=== PATIENT | male | born 1940 | race Caucasian/White ===

== ENCOUNTER 2018-01-03 06:33 | Day surgery (SDC) | payer OTHER, SELFPAY ==
[2017-12-18 16:34] VITALS: BMI 31.0
[2018-01-03] VITALS (7 sets, daily range): BP systolic 110–134; BP diastolic 59–76; PULSE 62–72; RESP 11–16; TEMP 36–36.2; O2SAT 94–98; BMI 31.6
[2018-01-03] MEDS: LACTATED RINGERS 1,000 ML 42 ML IV (07:41)
[2018-01-03] MEDS: CEFAZOLIN 2 GM/100 ML FROZ.PIGGY IV (08:00)
--- NOTE | 2018-01-03 08:00 | PM.PREOP ---
Pre-operative Note Interval Note Pre-op Check: Yes History & Physical Reviewed by Physician Changes: No
--- NOTE | 2018-01-03 08:23 | SUR.OPER ---
Supine on padded OR bed, head on pillow, arms secured on padded arm boards at <90 degrees abduction, legs uncrossed, safety belt at thigh, tape over blanket over lower legs.
[2018-01-03] MEDS: BUPIVACAINE 0.25% W/ EPI VIAL 50 ML INJ (08:29)
--- NOTE | 2018-01-03 08:56 | PM.OP.1 ---
Operative Date/Time/Diagnoses Date of procedure: 01/03/18 Time of procedure: 08:00 Pre-op diagnosis: Left carpal tunnel, left cubital tunnel Post-op diagnosis: same Procedure & Clinicians Procedure: Left carpal tunnel release, left cubital tunnel release Same procedure as scheduled: Yes Indications: Left carpal tunnel, left cubital tunnel Surgeon: Huey Perkins Development Manager: Bunny Madsen Anesthesia Type: General Operative Notes Findings: Compression of the median nerve at the carpal tunnel. Compression of the ulnar nerve at the cubital tunnel Closure Type: primary Estimated Blood Loss (mL): 0 Blood products transfused: none Tourniquet time (min): 26 Procedure in detail: On date of service, the patient was met in the holding area. His operative site was signed and witnessed by the OR staff. The surgery was once again discussed with the patient, and any remaining questions he had were answered fully. Patient was taken back to the operating theater and placed on the operating table in a supine position. Great care was taken to ensure that all bony prominences were carefully padded. A well-padded tourniquet was placed up along the upper extremity. A timeout was performed to verify patient's name, procedure, and operative site. The arm was then prepped and draped in the normal sterile fashion. A 15 blade was used to incise through skin In the center of the palm. Pickups and tenotomy scissors were used to dissect down until the palmar fascia was visualized. The palmar fascia was then sharply incised using a 15 blade. This gave us good visualization of the carpal ligament. A small opening was made into the carpal ligament, and a curved hemostat was placed into that opening. A 15 blade was then used to sharply incise the carpal ligament with the structures beneath being protected by the hemostat. Pickups and Metzenbaum scissors were used to complete the decompression both distally and proximally. This provided a complete decompression of the median nerve. The wound was then irrigated and closed with nylon. The hand was then cleaned, dried, and dressed. We next turned our attention to the cubital tunnel. A 15 blade was used to make an incision through skin and fascial tissue centered over the cubital tunnel. Pickups and Metzenbaum scissors were used to dissect down through the fascial tissue. The ulnar nerve was found proximal to the cubital tunnel. It was dissected free even further proximally. Next, the nerve was decompressed through the cubital tunnel. The roof of the tunnel was excised using the Metzenbaum scissors. This provided a complete decompression of the nerve through the cubital tunnel. The nerve was then decompressed even further distally through the FCU Fascial sheath. The branches coming off of the ulnar nerve were identified and protected. This provided us a large area of decompression of the ulnar nerve. The wound was then irrigated. The elbow was taken through range of motion and there was no sign of any instability to the nerve. The wound was then closed in a layered fashion. Patient was taken to the PACU in stable condition. Complications: none Condition: stable Disposition: PACU Plan for aftercare: No restrictions of range of motion. We will limit the amount of lifting for 2 weeks.
--- NOTE | 2018-01-03 09:15 | SUR.PHASEI ---
DRSG TO LEFT ELBOW ALSO OBSERVED TO BE C/D/I.
--- NOTE | 2018-01-03 09:29 | SUR.PHASEI ---
PT TRANSFERED TO [facility] IN STABLE CONDITION, VSS. PT SITTING UP AND DRINKING APPLE JUICE WITHOUT ANY DIFFICULTLY. PT DENIES ANY NAUSEA OR PAIN/DISCOMFORT. SURGICAL ARM WARM TO TOUCH, +PULSE, +SENSTATION, CAP REFILL WNL, AND +SENSTATION. DRSG'S OBSERVED TO BE C/D/I. BEDSIDE REPORT GIVEN TO DAVID TOMAS.
== END 2018-01-03 09:46 | disposition home or self-care (01) ==
PROVIDERS: Family Provider Family Medicine; PCP Family Medicine; Visit Provider Orthopaedic Surgery
PROC: (CPT 64721; principal; 2018-01-03 07:45)
PROC: (CPT 64718; 2018-01-03 07:45)
DX: G56.02 Carpal tunnel syndrome, left upper limb (principal); G56.22 Lesion of ulnar nerve, left upper limb; Z87.891 Personal history of nicotine dependence; Z95.0 Presence of cardiac pacemaker
CPT/HCPCS: 64718; 64721; J0690; J1100; J2405; J2704; J3010

== ENCOUNTER 2018-03-14 18:15 | Emergency (ER) | payer OTHER, SELFPAY ==
[2018-03-14 18:21] VITALS: BP 151/82; PULSE 75; RESP 15; TEMP 35.9; O2SAT 98; BMI 31.0
--- NOTE | 2018-03-14 18:58 | DI.RAD.S_ITS ---
PROCEDURE: XR CHEST 1V INDICATIONS: chest pain TECHNIQUE: One view of the chest was acquired. COMPARISON: [facility], , CHEST 2 VIEW, 12/19/2014, 18:22. FINDINGS: Surgical changes and devices: Dual chamber cardiac pacemaking device and leads in normal position Lungs and pleura: No pleural effusions or pneumothorax. Lungs are abnormal with a slight interstitial prominence and also reduced inspiratory volume with asymmetric mild to moderate elevation of the left hemidiaphragm,. Mediastinum: Mediastinal contours appear normal. Heart size is normal. Bones and chest wall: No suspicious bony lesions. Old left lateral rib trauma, versus thoracotomy. Overlying soft tissues appear unremarkable. IMPRESSION: No acute disease. Pacemaking device and dual chamber leads normal. Chronic elevation of the left hemidiaphragm associated either with old left lateral rib trauma or thoracotomy. Dictated by: Damon Sandoval M.D. on 03/14/2018 at 19:58 Approved by: Damon Sandoval M.D. on 03/14/2018 at 19:59
--- NOTE | 2018-03-14 19:13 | ED.GENADULT ---
HPI - General Adult General Chief complaint: Skin/Abscess/Foreign Body Stated complaint: CHEST VIBRATION, HAS PACEMAKER Time Seen by Provider: 03/14/18 19:13 Source: patient Mode of arrival: ambulatory Limitations: no limitations History of Present Illness HPI narrative: Patient is a 77-year-old male here for evaluation of a ?vibration? sensation in the right side of his chest. Patient states that it has been going on for approximately 1 week. He states that initially it was occasional now it seems to be more often. He states that it is a vibration sensation. Not associated with any chest pain or shortness of breath. States that it is not better worse with palpation or movement. He does have a pacemaker in place. Denies any trauma. Denies any skin changes. 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 Related Data Home Medications Medication Instructions Recorded Confirmed cholecalciferol (vitamin D3) 2,000 iu PO Q DAY #0 04/17/12 01/03/18 [Vitamin D3] aspirin 81 mg PO DAILY 12/18/17 01/03/18 Previous Rx's Medication Instructions Recorded hydrochlorothiazide 25 mg tablet 12.5 mg PO QDAY #45 tab 12/18/17 hydrocodone-acetaminophen [[place]] 2 tab PO Q4-6H PRN #30 tab 01/03/18 Allergies Allergy/AdvReac Type Severity Reaction Status Date / Time No Known Drug Allergies Allergy Verified 03/14/18 18:21 Review of Systems Constitutional Denies chills, Denies fatigue and Denies headache(s) ENT Ears, Nose, Mouth, and Throat: Denies vertigo and Denies headache(s) Cardiovascular Denies chest pain, Denies palpitations and Denies dyspnea Respiratory Denies cough and Denies dyspnea Gastrointestinal Gastrointestinal: Denies abdominal pain, Denies nausea and Denies vomiting Musculoskeletal Comments: Vibration sensation on the right side of his chest Integumentary/Breasts Denies lesions and Denies rash Neurologic Denies vertigo and Denies headache(s) Endocrine Denies fatigue and Denies palpitations Hematologic/Lymphatic Denies easy bleeding and Denies easy bruising REPLACED BY [facility] Medical History Acute bronchitis (Acute ~10/2017) Carpal tunnel syndrome of left wrist (Acute) Cough (Acute) Edema (Acute) Hearing deficit (Acute) High degree atrioventricular block (Acute) History of bradycardia (Acute) History of dizziness (Acute) Hyperlipidemia (Acute) Left shoulder pain (Acute) Lesion of ulnar nerve, left upper limb (Acute) Neck pain (Acute) Obese (Acute) Peyronie disease (Acute) Radicular pain in left arm (Acute) Sigmoid diverticulosis (Acute) Gout (Chronic 1994) Porphyria cutanea tarda (Chronic 1986) Surgical History History of colonoscopy (Acute) Hx of cholecystectomy (Acute ~1999) Status post cholecystectomy (Resolved 1999) Family History Brother No problems noted. Brother Cancer Father No problems noted. Mother Stroke Sister Stroke Social History household members: spouse Smoking Status: Former smoker alcohol intake: current Exam Initial Vital Signs Initial Vital Signs: Vital Signs Temperature 96.7 F L 03/14/18 18:21 Pulse Rate 75 03/14/18 18:21 Respiratory Rate 15 03/14/18 18:21 Blood Pressure 151/82 H 03/14/18 18:21 Pulse Oximetry 98 03/14/18 18:21 Const General: cooperative, healthy appearing, comfortable, well developed, well groomed and No acute distress Orientation: alert, awake and oriented x3 HENMT Head: normal to inspection and normocephalic Chest Chest: normal inspection of the chest, normal palpation of entire chest wall, No crepitus, No tenderness and pacemaker Breast inspection: normal inspection of the breasts Resp Effort & Inspection: normal respiratory effort Auscultation: clear to auscultation bilaterally Cardio Rhythm: regular rhythm Pulses: radial pulses present Skin Lesions: no lesions Rashes: no rashes Neuro General: alert, awake and oriented x3 Extrem General: normal to inspection and capillary refill normal Course Orders Ordered: ED Orders 03/14/18 18:58 XR chest 1V Stat EKG-12 Lead Stat Vital Signs - 8 hr 03/14/18 18:21 03/14/18 20:22 Temperature 96.7 F L Pulse Rate 75 80 Respiratory Rate 15 13 Blood Pressure 151/82 H 102/60 Pulse Oximetry 98 98 Medical Decision Making Imaging Data Chest x-ray: Radiologist's impression: PROCEDURE: XR CHEST 1V INDICATIONS: chest pain TECHNIQUE: One view of the chest was acquired. COMPARISON: [facility], CHEST 2 VIEW, 12/19/2014, 18:22. FINDINGS: Surgical changes and devices: Dual chamber cardiac pacemaking device and leads in normal position Lungs and pleura: No pleural effusions or pneumothorax. Lungs are abnormal with a slight interstitial prominence and also reduced inspiratory volume with asymmetric mild to moderate elevation of the left hemidiaphragm,. Mediastinum: Mediastinal contours appear normal. Heart size is normal. Bones and chest wall: No suspicious bony lesions. Old left lateral rib trauma, versus thoracotomy. Overlying soft tissues appear unremarkable. IMPRESSION: No acute disease. Pacemaking device and dual chamber leads normal. Chronic elevation of the left hemidiaphragm associated either with old left lateral rib trauma or thoracotomy. Dictated by: Damon Sandoval M.D. on 03/14/2018 at 19:58 Approved by: Damon Sandoval M.D. on 03/14/2018 at 19:59 ECG Data Attestation: I personally reviewed and interpreted this ECG as follows: Prior ECG tracings: not available for review Interpretation: Ventricular paced Rate is 72 QRS duration 177 milliseconds Normal QTC No ST T wave changes MDM Narrative Medical decision making narrative: Unsure as the exact etiology of the patient's symptoms. Does not appear to be pacemaker related. No skin changes. Is not having any chest pain. This could potentially be chest wall muscle spasms. Nothing noted on the chest x-ray. I discussed all this with the patient. He was given return precautions. He was informed of the lack of the exact etiology of his symptoms. Patient expressed understanding and agreement with plan. Discharge Plan Departure Patient Disposition: Home Clinical Impression: Presence of cardiac pacemaker, Paresthesia Discharge Date/Time: 03/14/18 20:22 Interventions: ED Discharge Assessment Last Done: 03/14/18 20:22 Activity Restrictions/Additional Instructions: No emergent condition was found during your limited workup today. 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 Return to the emergency department for any new symptoms, worsening symptoms, pain, problems breathing. Continue all of your medications as directed. Prescriptions: No Action cholecalciferol (vitamin D3) [Vitamin D3] 1,000 UNIT tablet 2,000 iu PO Q DAY Qty: 0 RF: 0 hydrochlorothiazide 25 mg tablet 12.5 mg PO QDAY Qty: 45 RF: 1 aspirin 81 mg Tablet,Delayed Release (Dr/Ec) 81 mg PO DAILY RF: 0 hydrocodone-acetaminophen [[place]] 5-325 mg tablet 2 tab PO Q4-6H PRN (Reason: pain) Qty: 30 RF: 0
[2018-03-14 20:22] VITALS: BP 102/60; PULSE 80; RESP 13; O2SAT 98
== END 2018-03-14 20:22 | disposition home or self-care (01) ==
PROVIDERS: Emergency Provider Emergency Medicine; Family Provider Family Medicine; PCP Family Medicine
DX: R20.2 Paresthesia of skin (principal); Z95.0 Presence of cardiac pacemaker
CPT/HCPCS: 71045; 93005; 99282; 99284

== ENCOUNTER 2018-04-25 13:26 | Day surgery (SDC) | payer OTHER, SELFPAY ==
[2018-04-25 14:10] VITALS: BP 129/75; PULSE 72; RESP 16; TEMP 36.4; O2SAT 97; BMI 31.0
[2018-04-25] MEDS: PROPARACAINE 0.5% OPHTH SOL 2 DROPS EYE-OP (14:14)
[2018-04-25] MEDS: CATARACT EYE COMPOUND (10 DROPS/SYRINGE) 3 DROPS EYE-OP (14:19)
--- NOTE | 2018-04-25 14:44 | PM.PREOP ---
Pre-operative Note Interval Note Pre-op Check: Yes History & Physical Reviewed by Physician Changes: No
--- NOTE | 2018-04-25 14:46 | PM.OP.1 ---
Procedure & Clinicians Procedure: cataract extraction with intraocular lens implant, left Same procedure as scheduled: Yes Indications: visually significant cataract, nuclear sclerosis Surgeon: Amari Perez Anesthesia Type: MAC +/- Operative Notes Procedure in detail: The patient was brought to the operating suite. The correct patient, surgical site and lens were confirmed. 0.5 % tetracaine drops were placed in the left eye. The patient was prepped and draped in the typical sterile manner. A lid speculum was placed in the eye. A paracentesis port was created with a side-port blade. 0.1 mL of 1% preservative free lidocaine was injected into the anterior chamber. Viscoelastic was injected into the anterior chamber. A 2.6mm keratome was used to create a clear corneal temporal incision. Cystotome and Utrata forceps were used to create a continuous curvilinear capsulorrhexis. Balanced salt solution was used to hydrodissect the nucleus. Phacoemulsification was used to remove the lens. The capsular bag was inflated with viscoelastic. A [place] ZBOO 21.5D lens was inserted into the capsule. Viscoelastic was removed and the wound hydrated. The wound was found to be leak free and the eye was assessed to be at normal physiologic pressure. 0.1mL Vigamox was injected into the anterior chamber. The lid speculum was removed and the patient left the operating room in excellent condition. Complications: none Condition: stable Disposition: same day surgery
[2018-04-25] MEDS: PHENYLEPHRINE/LIDOCAINE VIAL (OR) 0.2 ML EYE-OP (15:05)
[2018-04-25] MEDS: CHONDROIDTIN/SOD HYALURONATE 1.05 ML SYRINGE INTRAOCULA (15:05)
[2018-04-25] MEDS: MOXIFLOXACIN OPHTH DROPS 3 ML BOTTLE 2 DROPS INJ (15:05)
[2018-04-25] MEDS: TETRACAINE 0.5% OPHTH DROPS 15 ML 2 DROPS EYE-LEFT (15:06)
[2018-04-25] MEDS: BALANCED SALT IRRIG SOLN NO.2 500 ML, EPINEPHrine 1 MG IRR (15:06)
[2018-04-25] MEDS: LIDOCAINE 2% INJ SDV 1 ML INJ (15:07)
[2018-04-25 15:39] VITALS: BP 119/75; PULSE 64; RESP 12; TEMP 36.6; O2SAT 98
--- NOTE | 2018-05-09 17:00 | PM.OP.1 ---
Procedure & Clinicians Procedure: Cataract extraction with intraocular lens implant right eye Same procedure as scheduled: Yes Indications: nuclear sclerosis, visually significant cataract, right Surgeon: Amari Perez Click Yes if Unassisted: Yes Anesthesia Type: MAC +/- Operative Notes Procedure in detail: The patient was brought to the operating suite. The correct patient, surgical site and lens were confirmed. 0.5 % tetracaine drops were placed in the right eye. The patient was prepped and draped in the typical sterile manner. A lid speculum was placed in the eye. A paracentesis port was created with a side-port blade. 0.1 mL of 1% preservative free lidocaine with epinephrine was injected into the anterior chamber. Viscoelastic was injected into the anterior chamber. A 2.6mm keratome was used to create a clear corneal temporal incision. Cystotome and Utrata forceps were used to create a continuous curvilinear capsulorrhexis. Balanced salt solution was used to hydrodissect the nucleus. Phacoemulsification was used to remove the lens. The capsular bag was inflated with viscoelastic. A [place] ZBOO 21.0 D lens was inserted into the capsule. Viscoelastic was removed and the wound hydrated. The wound was found to be leak free and the eye was assessed to be at normal physiologic pressure. 0.1mL Vigamox was injected into the anterior chamber. The lid speculum was removed and the patient left the operating room in excellent condition. Complications: none Condition: stable Disposition: same day surgery
== END 2018-04-25 15:48 | disposition home or self-care (01) ==
LOC: OR 13:32
PROVIDERS: Family Provider Family Medicine; PCP Family Medicine; Visit Provider Ophthalmology
DX: H25.12 Age-related nuclear cataract, left eye (principal); Z95.0 Presence of cardiac pacemaker
CPT/HCPCS: J0171; J2250; J3010

== ENCOUNTER 2018-05-09 13:45 | Day surgery (SDC) | payer OTHER, SELFPAY ==
--- NOTE | 2018-05-09 14:45 | OP_ITS ---
correction, signed 05/09/18 Addendum Documented By: Amari Perez MD 06/06/18 1452 Addendum Signed By: <Electronically signed by Amari Perez MD> 1452 Procedure & Clinicians Procedure: Cataract extraction with intraocular lens implant right eye Same procedure as scheduled: Yes Indications: nuclear sclerosis, visually significant cataract, right Surgeon: Amari Perez Click Yes if Unassisted: Yes Anesthesia Type: MAC +/- Operative Notes Procedure in detail: The patient was brought to the operating suite. The correct patient, surgical site and lens were confirmed. 0.5 % tetracaine drops were placed in the right eye. The patient was prepped and draped in the typical sterile manner. A lid speculum was placed in the eye. A paracentesis port was created with a side-port blade. 0.1 mL of 1% preservative free lidocaine with epinephrine was injected into the anterior chamber. Viscoelastic was injected into the anterior chamber. A 2.6mm keratome was used to create a clear corneal temporal incision. Cystotome and Utrata forceps were used to create a continuous curvilinear capsulorrhexis. Balanced salt solution was used to hydrodissect the nucleus. Phacoemulsification was used to remove the lens. The capsular bag was inflated with viscoelastic. A [place] ZBOO 21.0 D lens was inserted into the capsule. Viscoelastic was removed and the wound hydrated. The wound was found to be leak free and the eye was assessed to be at normal physiologic pressure. 0.1mL Vigamox was injected into the anterior chamber. The lid speculum was removed and the patient left the operating room in excellent condition. Complications: none Condition: stable Disposition: same day surgery
[2018-05-09] MEDS: PROPARACAINE 0.5% OPHTH SOL 2 DROPS EYE-OP (15:14)
[2018-05-09 15:20] VITALS: BMI 31.0
[2018-05-09] MEDS: CATARACT EYE COMPOUND (10 DROPS/SYRINGE) 3 DROPS EYE-OP (15:20)
--- NOTE | 2018-05-09 15:23 | PM.PREOP ---
Pre-operative Note Interval Note Pre-op Check: Yes History & Physical Reviewed by Physician Changes: No
[2018-05-09 15:27] VITALS: BP 134/76; PULSE 69; RESP 16; TEMP 37.2; O2SAT 95
[2018-05-09] MEDS: CHONDROIDTIN/SOD HYALURONATE 1.05 ML SYRINGE INTRAOCULA (16:29)
[2018-05-09] MEDS: MOXIFLOXACIN OPHTH DROPS 3 ML BOTTLE 2 DROPS INJ (16:29)
[2018-05-09] MEDS: PHENYLEPHRINE/LIDOCAINE VIAL (OR) 0.2 ML EYE-OP (16:30)
[2018-05-09] MEDS: BALANCED SALT IRRIG SOLN NO.2 500 ML, EPINEPHrine 1 MG IRR (16:30)
[2018-05-09] MEDS: LIDOCAINE 2% INJ SDV 0.5 ML TOP (16:31)
[2018-05-09] MEDS: TETRACAINE 0.5% OPHTH DROPS 15 ML 2 DROPS EYE-RIGHT (16:31)
[2018-05-09 17:05] VITALS: BP 132/69; PULSE 63; RESP 16; TEMP 36.3; O2SAT 97
== END 2018-05-09 17:20 ==
LOC: OR 13:45
PROVIDERS: Family Provider Family Medicine; PCP Family Medicine; Visit Provider Ophthalmology
DX: H25.11 Age-related nuclear cataract, right eye (principal); Z95.0 Presence of cardiac pacemaker
CPT/HCPCS: J0171; J2250; J3010

== ENCOUNTER → 2018-06-26 12:52 | Outpatient (CLI) | payer OTHER, SELFPAY ==
[2018-06-26 13:07] LABS: Add Manual Diff / Slide Review NO; Basophils Absolute Auto 0 /uL (0-100); Basophils Percent Auto 0.7 % (0-2); Eosinophils Absolute Auto 100 /uL (0-450); Eosinophils Percent Auto 1.1 % (2-4); Hematocrit 44.2 % (41-53); Hemoglobin 14.7 g/dL (13.5-17.5); Lymphocytes Absolute Auto 2000 /uL (1100-4500); Lymphocytes Percent Auto 32.7 % (25-40); Mean Corpuscular HGB Conc 33.2 % (30-36); Mean Corpuscular Hemoglobin 29.9 PG (26-34); Mean Corpuscular Volume 90.3 fL (80-100); Monocytes Absolute Auto 400 /uL (0-900); Monocytes Percent Auto 6.5 % (3-14); Neutrophils Absolute Auto 3700 /uL (1500-7000); Platelet Count 195 X10^3/uL (150-400); Red Cell Distribution Width 13.9 % (11.6-14.8); White Blood Cell Count 6.2 X10^3/uL (4.5-11.0)
[2018-06-26 13:37] LABS: 585 Gram Check PASS; Amount Collected in g 585 GRAM; Prediastolic 67; Presystolic 116; Pulse 73; Site of phlebotomy LEFT AC; Zero Check Sebra Scale PASS
[2018-06-26 13:38] LABS: Dizziness NO; Postdiastolic BP 73; Postsystolic BP 118; Swelling NO; Therapeutic Phleb Comment NO COMMENT
[2018-06-26 14:14] LABS: HEMOLYSIS < 15 (0-50); Iron 100 ug/dL (49-181)
[2018-06-26 14:24] LABS: Percent Iron Saturation 29 % (20-50); Total Iron Binding Capacity 343 ug/dL (261-462); Transferrin 278 mg/dL (206-381)
[2018-06-26 16:31] LABS: Ferritin 67.4 ng/mL (17.9-464)
== END ==
PROVIDERS: Family Provider Family Medicine; PCP Family Medicine; Visit Provider Family Medicine
DX: E80.1 Porphyria cutanea tarda (principal); R89.9 Unspecified abnormal finding in specimens from other organs, systems and tissues
CPT/HCPCS: 36415; 82728; 83540; 83550; 85025; 99195

== ENCOUNTER → 2018-09-10 09:50 | Outpatient (CLI) | payer OTHER, SELFPAY ==
--- NOTE | 2018-09-10 09:52 | DI.RAD.S_ITS ---
PROCEDURE: XR KNEE LT 3V INDICATIONS: Persist L medial and under kneecap pain s/p fall remotely TECHNIQUE: 3 views of the knee were acquired. COMPARISON: [facility], , XR KNEE 2V LT, 04/16/2002, 15:41. FINDINGS: Bones: No fractures or dislocations. No suspicious bony lesions. There is joint space narrowing and osteophyte formation in the medial femorotibial compartment and patellofemoral compartment consist with osteoarthritis. Soft tissues: Small joint effusion. No suspicious soft tissue calcifications. IMPRESSION: 1. Mild to moderate osteoarthritis. 2. Small knee joint effusion. Dictated by: Zoe Cooper M.D. on 09/10/2018 at 10:42 Approved by: Zoe Cooper M.D. on 09/10/2018 at 10:56
== END ==
PROVIDERS: PCP Family Medicine; Visit Provider Nurse Practitioner
DX: M25.562 Pain in left knee (principal); T14.90XA Injury, unspecified, initial encounter; M17.12 Unilateral primary osteoarthritis, left knee; M25.462 Effusion, left knee
CPT/HCPCS: 73562

== ENCOUNTER → 2019-04-14 11:38 | Outpatient (CLI) | payer OTHER, SELFPAY ==
[2019-04-14 13:20] LABS: Hemoglobin 15.5 g/dL (13.5-17.5); Mean Corpuscular HGB Conc 33.8 % (30-36); Mean Corpuscular Hemoglobin 30.3 PG (26-34); Mean Corpuscular Volume 89.8 fL (80-100); Platelet Count 199 X10^3/uL (150-400); Red Blood Cell Count 5.12 X10^6/uL (4.5-5.9); Red Cell Distribution Width 14.3 % (11.6-14.8); White Blood Cell Count 6.9 X10^3/uL (4.5-11.0)
[2019-04-14 13:21] LABS: Ferritin 47.5 ng/mL (17.9-464)
[2019-04-14 13:47] LABS: Anisocytosis 1+; Neutrophils Absolute Manual 4830 /uL (3000-5900); Total Cells Counted 100
== END ==
PROVIDERS: PCP Family Medicine; Visit Provider Family Medicine
DX: R94.5 Abnormal results of liver function studies (principal); Z12.5 Encounter for screening for malignant neoplasm of prostate
CPT/HCPCS: 36415; 82728; 85025; G0103

== ENCOUNTER → 2019-04-17 12:02 | Outpatient (CLI) | payer OTHER, SELFPAY ==
[2019-04-17 12:39] LABS: 585 Gram Check PASS; Dizziness NO; Postdiastolic BP 72; Postsystolic BP 119; Prediastolic 82; Presystolic 128; Pulse 87; Site of phlebotomy RAC; Swelling NO; Therapeutic Phleb Comment NO COMMENT; Zero Check Sebra Scale PASS
== END ==
PROVIDERS: PCP Family Medicine; Visit Provider Family Medicine
DX: D75.1 Secondary polycythemia (principal)
CPT/HCPCS: 99195

== ENCOUNTER → 2019-06-05 12:08 | Outpatient (CLI) | payer OTHER, SELFPAY ==
[2019-06-05 12:23] LABS: Hematocrit 43.1 % (41-53); Hemoglobin 14.4 g/dL (13.5-17.5)
== END ==
PROVIDERS: PCP Family Medicine; Visit Provider Family Medicine
DX: E80.1 Porphyria cutanea tarda (principal)
CPT/HCPCS: 36415; 85014; 85018

== ENCOUNTER → 2019-08-19 08:00 | Outpatient (CLI) | payer MEDICARE, SELFPAY ==
--- NOTE | 2019-08-19 | DI.ECHO.S_ITS ---
[place] [facility]---------+ [facility] +---------+ : : [address] : : : : [id number] : : : : Phone: [phone]+ Echocardiogram Report + + :Name: MAYELA PALOMINO Study Date: 08/19/2019 Height: 69 in : :[facility] Weight: 218 lb : : Gender: Male BSA: 2.1 m2 : :: 1940 Age: 79 yrs BP: 134/82 mmHg: :Reason For Study: murmur : :Ordering Physician: Keith : :Sammie Arcos Performed By: Brenda Granado : :Referring: KEITH ARCOS : + + Interpretation Summary The left ventricle is normal in size. Left ventricular ejection fraction is estimated to be 55 +/- 5%. The right ventricle is mild to moderately dilated. Visually right ventricular function looks mildly reduced. There is a pacemaker lead in the right ventricle. There is moderate tricuspid regurgitation. The right ventricular systolic pressure is estimated to be at least 28 mmHg based on an estimated right atrial pressure of 3 mm Hg. Procedure: A two-dimensional transthoracic echocardiogram with color flow and Doppler was performed. There is no prior echocardiogram noted for this patient. The patient has a paced rhythm. Left Ventricle: Proximal septal thickening is noted. There is no echo evidence for significant left ventricular outflow tract obstruction. The left ventricle is normal in size. There is no thrombus. Left ventricular ejection fraction is estimated to be 55 +/- 5%. There is a mild dyssynchronous contraction pattern due to the paced rhythm. Septal motion is consistent with conduction abnormality. There is septal wall hypokinesis. There is apical inferior wall hypokinesis. Diastolic parameters suggest a relaxation abnormality of the left ventricle, consistent with probable normal filling pressures. Right Ventricle: There is a pacemaker lead in the right ventricle. The right ventricle is mild to moderately dilated. Visually right ventricular function looks mildly reduced. Atria: The left atrial size is normal. There is a catheter/pacemaker lead seen in the right atrium. The right atrium is mild to moderately dilated. There is no Doppler evidence for an interatrial shunt. Mitral Valve: There is mild mitral annular calcification. There is mild mitral regurgitation. Aortic Valve: The aortic valve is trileaflet. There is mild aortic valve sclerosis. There is discrete nodular thickening of the right coronary cusp. There is no aortic valve stenosis. No aortic regurgitation is present. Tricuspid Valve: The tricuspid valve is not well visualized, but is grossly normal. There is moderate tricuspid regurgitation. The right ventricular systolic pressure is estimated to be at least 28 mmHg based on an estimated right atrial pressure of 3 mm Hg. Pulmonic Valve: The pulmonic valve is not well visualized. There is trace pulmonic regurgitation. Great Vessels: The aortic root is normal size. The ascending aorta is normal in size. The IVC is of normal diameter and collapses greater than 50% with a sniff. This suggests a low right atrial pressure of 3 mm Hg. Pericardium/ Pleura There is no pericardial effusion. There is no pleural effusion. MMode/2D Measurements & Calculations LVIDd: 4.3 cm LVOT diam: 2.0 cm LVIDs: 2.8 cm Ao root diam: 3.1 cm FS: 36.1 % asc Aorta Diam: 3.0 cm EPSS: 0.58 cm Ao Arch Diam (Prox Trans): 3.3 cm IVSd: 0.96 cm LVPWd: 0.91 cm LV allen. diameter/BSA (cm/m^2): 2.0 LV sys. diameter/BSA (cm/m^2): 1.3 LA A2 area: 14.2 cm2 RA long axis: 4.5 cm LA A4 area: 16.3 cm2 RA area: 14.7 cm2 LA length (vol): 5.0 cm RA vol: 40.7 ml LA vol: 38.8 ml RA : 19.0 ml/m2 LA vol index: 18.1 ml/m2 IVC diam: 1.7 cm RVD1 (basal): 3.4 cm Doppler Measurements & Calculations Ao V2 max: 138.7 cm/sec LVOT Max Yoan: 77.7 cm/sec Ao V2 mean: 98.4 cm/sec LV V1 max P.4 mmHg Ao max P.7 mmHg LV V1 VTI: 15.4 cm Ao mean P.3 mmHg MAGALI(I,D): 1.6 cm2 Ao V2 VTI: 29.3 cm MAGALI(V,D): 1.7 cm2 sev ratio: 0.53 MAGALI indexed to BSA (cm^2/m^2): 0.76 MV E max yoan: 62.5 cm/sec TR max yoan: 250.2 cm/sec MV A max yoan: 77.1 cm/sec TR max P.0 mmHg MV E/A: 0.81 PA V2 max: 125.5 cm/sec Med Peak E' Yoan: 7.6 cm/sec PA V2 mean: 74.6 cm/sec E/E' med: 8.2 PA mean P.7 mmHg Lat Peak E' Yoan: 7.1 cm/sec PA Accel Time: 0.05 sec E/E' lat: 8.9 E/e' average: 8.6 MV dec time: 0.26 sec MV P1/2t: 76.4 msec MV P1/2t max yoan: 62.9 cm/sec SV(LVOT): 47.8 ml MVA(P1/2t): 2.9 cm2 Reading Physician:04:03 PM
== END ==
PROVIDERS: PCP Family Medicine; Referring Provider Internal Medicine Cardiovascular Disease; Visit Provider Internal Medicine Cardiovascular Disease
DX: I08.1 Rheumatic disorders of both mitral and tricuspid valves (principal); R01.1 Cardiac murmur, unspecified; Z95.0 Presence of cardiac pacemaker
CPT/HCPCS: 93306

== ENCOUNTER → 2019-12-31 09:47 | Outpatient (CLI) | payer MEDICARE, SELFPAY ==
[2019-12-31 10:04] LABS: Hemoglobin 14.4 g/dL (13.5-17.5)
[2019-12-31 12:34] LABS: 585 Gram Check PASS; Prediastolic 72; Presystolic 125; Pulse 78; Zero Check Sebra Scale PASS
[2019-12-31 12:35] LABS: Dizziness NO; Postdiastolic BP 73; Postsystolic BP 126; Site of phlebotomy LAC; Swelling NO; Therapeutic Phleb Comment NO COMMENT
== END ==
PROVIDERS: PCP Family Medicine; Referring Provider Family Medicine; Visit Provider Family Medicine
DX: D75.1 Secondary polycythemia (principal)
CPT/HCPCS: 36415; 85014; 85018; 99195

== ENCOUNTER 2020-02-18 11:21 | Emergency (ER) | payer MEDICARE, SELFPAY ==
[2020-02-18] VITALS (11 sets, daily range): BP systolic 128–179; BP diastolic 63–81; PULSE 67–85; RESP 12–24; TEMP 36.4; O2SAT 96–99; BMI 31.0
--- NOTE | 2020-02-18 11:29 | ED.DIZZY ---
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 He states that around 2:30 this morning and again at 5:00 a.m. this morning when he got up he felt very dizzy and when he walked he noted that he had to almost hold onto the bloom to keep fromfalling over. He states that this did not wake him from sleep but he just noticed it when he got up. He also felt nauseous. He has had 3 episodes of vomiting today. He states that he feels dizzy at rest but he notes that it is significantly worse when he moves around, when he is up and walking and/or even when he is moving his head. He says he has had vertigo previously for years but the only time he has ever experienced this is when he is working on a car and looking up at something and craning his head. He has never had vertigo that affect his balance or his ability to walk. 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 Other than feeling a little bit tired he does not feel like this affected him he did not have any chest pain or any other symptoms when he was doing this work but he is concerned that he might be dehydrated as he has not been drinking very much fluid yesterday he only had a cup of coffee in the morning. He says he does have chronic problems with his left sinus pointing to his nose saying that he often has to use a nasal spray at night because he does get congested chronically he has not noticed any change in this recently. His notes that his blood pressure is usually around the 120s when he checks it at home. Patient said that he did monitor his heart and check his blood pressure when he experienced the dizziness this morning and did not note that these were appreciably different than usual, his initial concern was for his pacemaker possibly not working correctly but he said his rate was around 70 or so. Which is normal for him. He denies any vision changes, headache, chest pain, back pain, palpitations, syncope, abdominal pain, shortness of breath, recent illness, fevers, chills, body aches, ear pain or fullness, sinus pressure or any other symptoms. MD complaint: dizziness Onset (ago): hour(s) (8) Timing: unsure Description: off-balance History of similar episodes: No History of trauma: No Severity: moderate Relieving factors: rest Exacerbating factors: movement and position Associated symptoms: nausea and vomiting Related Data Home Medications Medication Instructions Recorded Confirmed cholecalciferol (vitamin D3) 2,000 iu PO Q DAY #0 04/17/12 05/06/19 [Vitamin D3] Previous Rx's Medication Instructions Recorded meclizine 12.5 mg PO BID PRN #20 tab MDD 25mg 02/18/20 ondansetron HCl [Zofran] 4 mg PO Q6H #20 tab 02/18/20 Allergies Allergy/AdvReac Type Severity Reaction Status Date / Time No Known Drug Allergies Allergy Verified 02/18/20 11:28 Review of Systems <Althea Tay PA-C - Last Filed: 02/18/20 20:37> Review of Systems Narrative: GENERAL: Denies chills, fatigue, malaise, fever, sweats. HEENT: Denies sinus pain, ear pain, sore throat, difficulty swallowing, positive for dizziness. RESPIRATORY: Denies dyspnea, cough, wheezing, hemoptysis, sputum. CARDIOVASCULAR: Denies chest pain, palpitations, orthopnea, edema, GASTROINTESTINAL: Positive for nausea, vomiting, denies abdominal pain, diarrhea, constipation, melena. : Denies dysuria, frequency, incontinence, hematuria, urinary retention. MUSCULOSKELETAL: denies weakness, joint pain, or bony pain SKIN: Denies rash, skin lesions, or other NEUROLOGIC: Denies weakness, headache, numbness, change in speech, confusion, seizures, incoordination. PSYCHIATRIC: No concerning psychosocial issues. 12 point review of systems is negative except for those stated above ROS Unobtainable: All systems reviewed & are unremarkable except as noted in HPI and below Patient History <Althea Tay PA-C - Last Filed: 02/18/20 20:37> Medical History (Updated 02/18/20 @ 15:35 by Atlhea Tay PA-C) Acute bronchitis (Acute ~10/2017) Carpal tunnel syndrome of left wrist (Acute) Cough (Acute) Edema (Acute) Gout (Chronic 1994) Hearing deficit (Acute) High degree atrioventricular block (Acute) History of bradycardia (Acute) History of dizziness (Acute) Hyperlipidemia (Acute) Left shoulder pain (Acute) Lesion of ulnar nerve, left upper limb (Acute) Neck pain (Acute) Obese (Acute) Peyronie disease (Acute) Porphyria cutanea tarda (Chronic 1986) Radicular pain in left arm (Acute) Sigmoid diverticulosis (Acute) Surgical History History of colonoscopy (Acute) Hx of cholecystectomy (Acute ~1999) Status post cholecystectomy (Resolved 1999) Family History Brother No problems noted. Brother Cancer Father No problems noted. Mother Stroke Sister Stroke Social History household members: spouse Smoking Status: Former smoker alcohol intake: current Smoking Status: Former smoker alcohol intake frequency: holidays/special occasions only Substance Use Type: does not use Exam <Althea Tay PA-C - Last Filed: 02/18/20 20:37> Narrative Exam Narrative: GENERAL: 79 year old patient appears stated age. Well-nourished, well-developed patient, in mild distress. HEAD: Atraumatic. Normocephalic. EYES: Pupils equal round and reactive. Extraocular motions intact. No scleral icterus. No injection or drainage. There is slow subtle horizontal nystagmus with left lateral gaze. ENT: Nose without bleeding, purulent drainage. Throat without erythema, tonsillar hypertrophy or exudate. Airway patent. The right tympanic membrane is normal in appearance, pearly carr with cone of light visible, external auditory canals normal in appearance. The left EAC is normal in appearance, the left TM is without erythema, there is there is an effusion present, nonpurulent NECK: Trachea midline. Non tender CARDIOVASCULAR: Regular rate and rhythm without murmurs, gallops, or rubs. RESPIRATORY: Clear to auscultation. Breath sounds equal bilaterally. No wheezes, rales, or rhonchi. GASTROINTESTINAL: Abdomen soft, protruberant, non-tender, nondistended. EXTREMITIES: No edema or joint tenderness. BACK: Nontender without deformity or crepitance. No flank tenderness. NEURO: AOx3. Cranial nerves are intact with exception above under eyes, neuro exam is unremarkable with exception of nystagmus, strength is intact 5/5 bilaterally, coordination is intact with [id number] oybh-[id number]-[id number], negative arm drift. SKIN: No rash or erythema of visible areas Initial Vital Signs Initial Vital Signs: Vital Signs Temperature 97.5 F L 02/18/20 11:28 Pulse Rate 68 02/18/20 11:28 Respiratory Rate 14 02/18/20 11:28 Blood Pressure 179/81 H 02/18/20 11:28 Pulse Oximetry 99 02/18/20 11:28 <Victoria Gillespie DO - Last Filed: 02/19/20 08:02> Initial Vital Signs Initial Vital Signs: Vital Signs Temperature 97.5 F L 02/18/20 11:28 Pulse Rate 68 02/18/20 11:28 Respiratory Rate 14 02/18/20 11:28 Blood Pressure 179/81 H 02/18/20 11:28 Pulse Oximetry 99 02/18/20 11:28 GENERAL: Alert well-appearing elderly male and in no acute distress. HEENT: Head atraumatic,EOMI, pupils reactive, face symmetric, moist mucous membranes CARDIOVASCULAR: Regular rate and rhythm without murmurs, rubs or gallops. RESPIRATORY: Breath sounds equal bilaterally, no wheezes rales or rhonchi. ABDOMEN: Soft, nontender. Normoactive bowel sounds all 4 quadrants. No guarding or rebound. EXTREMITIES: Normal range of motion, no clubbing or edema. Neurovascularly intact NEUROLOGICAL: Alert and oriented x4.Normal gait and speech. Cranial nerves II through XII grossly intact. Good woailb-mu-iyzf, good cffc-lt-mxhy, strength equal bilaterally, no dysarthria or aphasia, sensation in tact to soft touch bilaterally, no visual changes, no facial droop SKIN: Warm, dry, no laceration, no petechiae, no rashes or lesions. Scores <Althea Tay PA-C - Last Filed: 02/18/20 20:37> ABCD2 Citation: Lancet. 2006Jul 07;369(1062):813-64. Validation and refinement of scores to predict very early stroke risk after transient ischaemic attack. Judy SC1, Saritha PM, Griselda MN, Martin MF, Carmelita JS, Shelton AL, Rufus S. <Victoria Gillespie DO - Last Filed: 02/19/20 08:02> NIH Stroke Scale Level of Conciousness: Alert, keenly responsive Ask month/age: Answers both questions correctly. Open/close eyes, close hand: Performs both tasks correctly Best gaze horizontal: Normal Visual sanchez: No visual loss Facial palsy: Normal symetrical movement Left arm drift: No drift for full 10 sec Right arm drift: No drift for full 10 sec Left leg drift: No drift for full 5 sec Right leg drift: No drift for full 5 sec Limb ataxia: Absent Sensory on face/arms/legs: Normal, no sensory loss Best language: No aphasia, normal Dysarthria: Normal Extinction or inattention: No abnormality Total NIH Stroke scale score: 0 Course <Althea Tay PA-C - Last Filed: 02/18/20 20:37> Course Course Narrative: I spoke with attending physician Dr. Gillespie about this patient, while it is possible that his symptoms are caused by a BPPV or viral illness, his symptoms are new for him acute in onset and given his age concerning for a posterior stroke, we elect to do a noncontrast head CT in addition to labs. 11:50 Patient was feeling significantly better after the medications he received, meclizine and Zofran although he still notes that he turns his head he feels more dizzy. He was able to walk around the unit multiple times although his gait is noted to be slower than usual and as if he is having to balance himself carefully (according to his ) compared to his normal. He states his symptoms are significantly better although while he is walking he says a little hesitant to move my head around too much because it might make me feel sick. 13:18 Discussd pt again with Attending, Anticipate discharging with zofran and Meclizine prescription, return precautions and close PCP follow up; Dr. Gillespie to examine the patient. 13:28 After examining the patient, Dr. Gillespie feels we should do a CTA head neck she is concerned that he still feels off balance with walking, and we should do more to evaluate for posterior stroke. He has a pacemaker and is not an excellent candidate for an MRI also may not be able to get him in quickly for this, we will pursue CTA. 13:45 Awaiting results of CTA; pt is resting comfortably; still has not vomited again since initial zofran and meclizine. 14:46 CTA is negative. 15:12 Patient is still feeling okay, no increased nausea with no recent vomiting discussed the plan for PCP follow-up ideally in the next 48 hours, discussed the importance of monitoring for any new or worsening symptoms and returning to the emergency department if these arise. Patient and are understanding and in agreement. Also discussed possibly seeing physical therapy if his symptoms are not improving, for possible help with BPPV/otolith repositioning. 15:30 Orders Ordered: Discontinued Medications Sodium Chloride (Normal Saline 0.9%) 1,000 mls @ 150 mls/hr IV CONT NASH Last Admin: 02/18/20 12:18 Dose: Not Given Documented by: JALENAPDaquan Sodium Chloride (Normal Saline 0.9%) 1,000 mls @ 500 mls/hr IV BOLUS ONE Stop: 02/18/20 13:50 Last Infusion: 02/18/20 13:19 Dose: 0 mls/hr Documented by: Admin: 02/18/20 12:00 Dose: 500 mls/hr Documented by: PETTY Meclizine HCl (Antivert) 25 mg PO NOW ONE Stop: 02/18/20 11:49 Last Admin: 02/18/20 12:00 Dose: 25 mg Documented by: PETTY Ondansetron HCl (Zofran) 4 mg IV NOW ONE Stop: 02/18/20 11:49 Last Admin: 02/18/20 12:00 Dose: 4 mg Documented by: PETTY Vital Signs Vital signs: Vital Signs - 8 hr 02/18/20 13:00 02/18/20 13:07 02/18/20 13:30 Pulse Rate 67 84 76 Respiratory Rate 13 17 Blood Pressure 128/73 169/74 H Pulse Oximetry 96 98 97 02/18/20 14:00 02/18/20 14:30 02/18/20 14:57 Pulse Rate 79 76 78 Respiratory Rate 24 Blood Pressure 132/63 Pulse Oximetry 98 97 97 02/18/20 15:00 02/18/20 15:30 Pulse Rate 68 85 Respiratory Rate Blood Pressure 144/67 H 142/68 H Pulse Oximetry 97 98 <Victoria Gillespie DO - Last Filed: 02/19/20 08:02> Orders Ordered: Discontinued Medications Sodium Chloride (Normal Saline 0.9%) 1,000 mls @ 150 mls/hr IV CONT NASH Last Admin: 02/18/20 12:18 Dose: Not Given Documented by: SCANAPO Sodium Chloride (Normal Saline 0.9%) 1,000 mls @ 500 mls/hr IV BOLUS ONE Stop: 02/18/20 13:50 Last Infusion: 02/18/20 13:19 Dose: 0 mls/hr Documented by: Admin: 02/18/20 12:00 Dose: 500 mls/hr Documented by: PETTY Meclizine HCl (Antivert) 25 mg PO NOW ONE Stop: 02/18/20 11:49 Last Admin: 02/18/20 12:00 Dose: 25 mg Documented by: PETTY Ondansetron HCl (Zofran) 4 mg IV NOW ONE Stop: 02/18/20 11:49 Last Admin: 02/18/20 12:00 Dose: 4 mg Documented by: PETTY Vital Signs Vital signs: Vital Signs - 8 hr 02/18/20 13:00 02/18/20 13:07 02/18/20 13:30 Pulse Rate 67 84 76 Respiratory Rate 13 17 Blood Pressure 128/73 169/74 H Pulse Oximetry 96 98 97 02/18/20 14:00 02/18/20 14:30 02/18/20 14:57 Pulse Rate 79 76 78 Respiratory Rate 24 Blood Pressure 132/63 Pulse Oximetry 98 97 97 02/18/20 15:00 02/18/20 15:30 Pulse Rate 68 85 Respiratory Rate Blood Pressure 144/67 H 142/68 H Pulse Oximetry 97 98 MDM - Dizziness <Althea Tya PA-C - Last Filed: 02/18/20 20:37> Differential Diagnosis Differential diagnosis: Likely benign paroxysmal positional vertigo, vertebral basilar insufficiency, cerebrovascular accident, transient cerebral ischemia and other (dehydration) Medical Records Attestation: I reviewed the patient's medical records. Lab Data Attestation: I reviewed the patient's lab results. Result diagrams: 02/18/20 11:35 02/18/20 11:35 Labs: Lab Results 02/18/20 02/18/20 02/18/20 Range/Units 11:35 11:35 11:35 WBC 5.0 (4.5-11.0) X10^3/uL RBC 4.64 (4.5-5.9) X10^6/uL Hgb 14.3 (13.5-17.5) g/dL Hct 42.3 (41-53) % MCV 91.1 (80-100) fL MCH 30.9 (26-34) PG MCHC 33.9 (30-36) % RDW 14.8 (11.6-14.8) % Plt Count 167 (150-400) X10^3/uL Neut % (Auto) 75.6 H (50-75) % Lymph % (Auto) 17.8 L (25-40) % Newberry % (Auto) 5.3 (3-14) % Eos % (Auto) 0.8 L (2-4) % Baso % (Auto) 0.5 (0-2) % Neut # (Auto) 3800 (5393-3058) /uL Lymph # (Auto) 900 L (7100-7843) /uL Newberry # (Auto) 300 (0-900) /uL Eos # (Auto) 0 (0-450) /uL Baso # (Auto) 0 (0-100) /uL Sodium 136 L (137-145) mmol/L Potassium 4.3 (3.4-5.1) mmol/L Chloride 103 (98-107) mmol/L Carbon Dioxide 28 (22-32) mmol/L BUN 15 (9-20) mg/dL Creatinine 0.68 (0.66-1.25) mg/dL Estimated GFR > 60.0 (>60) mL/min BUN/Creatinine Ratio 22.1 H (6-22) Glucose 122 H (80-110) mg/dL Calcium 9.1 (8.4-10.2) mg/dL Total Bilirubin 1.2 (0.2-1.3) mg/dL AST 29 (17-59) IU/L ALT 17 (<50) IU/L Alkaline Phosphatase 65 (38-126) U/L Total Creatine Kinase 83 (55-170) U/L CK-MB (CK-2) TNP CK-MB (CK-2) Rel Index TNP Troponin I < 0.012 (0.01-0.034) ng/mL Total Protein 7.2 (6.3-8.2) g/dL Albumin 4.2 (3.5-5.0) g/dL Globulin 3.0 (1.7-4.1) g/dL Albumin/Globulin Ratio 1.4 (1.0-2.8) Lipase 61 (23-300) U/L Urine Dip Bedside Urine Glucose Negative Bedside Urine Bilirubin - Negative Bedside Urine Ketone ++ 40 Urine Specific [place] 1.020 Bedside Urine Occult Blood - Negative Bedside Urine pH 6.0 Bedside Urine Protein - Negative Bedside Urine Urobilinogen - Negative Bedside Urine Nitrite - Negative Bedside Urine Leukocytes - Negative Esterase Imaging Data Chest x-ray: Attestation: I personally reviewed and interpreted this imaging study as follows: Radiologist's Impression: [address] [address] XRay Report Signed Patient: Ray White LMR#: [id number] : 1940Acct:[id number] Age/Sex: 79 / MDate of Service: 02/18/20 Loc: ED Accession Number: [id number] Procedure: XR chest 1V Ordering Provider: Althea Tay P.A-C PROCEDURE: XR CHEST 1V INDICATIONS: dizziness TECHNIQUE: One view of the chest was acquired. COMPARISON: [facility], , XR CHEST 1V, 03/14/2018, 19:38. FINDINGS: Surgical changes and devices: Left chest wall pacemaker leads are seen in the region of right atrium and right ventricle. Lungs and pleura: Mild pulmonary vascular congestion is seen. No focal infiltrate. No pleural effusions or pneumothorax. Mediastinum: Mediastinal contours appear normal. Heart size is enlarged. Bones and chest wall: No suspicious bony lesions. Overlying soft tissues appear unremarkable. IMPRESSION: Cardiomegaly and mild congestion. No focal infiltrate, pleural effusion or pneumothorax. Dictated by: Lewis Mauricio M.D. on 02/18/2020 at 12:08 Approved by: Lewis Mauricio M.D. on 02/18/2020 at 12:17 CT scan - head: Attestation: I personally reviewed and interpreted this imaging study as follows: Radiologist's Impression: [address] [address] [address] Scan Report Signed Patient: Ray White LMR#: [id number] : 1940Acct:[id number] Age/Sex: 79 / MDate of Service: 02/18/20 Loc: ED Accession Number: [id number] Procedure: CT head/brain wo con Ordering Provider: Althea Tay P.A-C PROCEDURE: CT HEAD/BRAIN WO CON INDICATIONS: acute dizziness, concern for posterior stroke TECHNIQUE: Noncontrast 4.5 mm thick angled axial sections acquired from the foramen magnum to the vertex, with coronal and sagittal reformats. For radiation dose reduction, the following was used: automated exposure control, adjustment of mA and/or kV according to patient size. COMPARISON: [facility], MR, BRAIN (IAC) W AND WO CONTRAST, 10/18/2009, 9:14. FINDINGS: Image quality: Excellent. CSF spaces: Basal cisterns are patent. No extra-axial fluid collections. The ventricles are symmetric in size and shape. Brain: No intracranial bleeds or masses. There is cerebral volume loss for age, with resultant ventricular and sulcal prominence. There are periventricular and deep white matter chronic small vessel ischemic changes. There is intracranial internal carotid artery atherosclerosis. Skull and face: Calvarium and visualized facial bones appear intact, without suspicious lesions. Sinuses: Visualized sinuses and mastoids are clear. IMPRESSION: No findings of acute infarction are detected by this noncontrast head CT. No acute intracranial hemorrhage is seen. Note is made of age-appropriate brain parenchymal volume loss and chronic small vessel ischemic changes. If there is strong clinical suspicion for an acute stroke, please consider an MRI for further evaluation, as it is more sensitive (assuming that there is no contraindication to MRI). Dictated by: Sammy Dow M.D. on 02/18/2020 at 11:23 Approved by: Sammy Dow M.D. on 02/18/2020 at 11:24 CTA - brain/neck: Attestation: I personally reviewed and interpreted this imaging study as follows: Radiologist's Impression: [address] [address] [address] Scan Report Signed Patient: Ray White LMR#: [id number] : 1940Acct:[id number] Age/Sex: 79 / MDate of Service: 02/18/20 Loc: ED Accession Number: [id number] Procedure: CT angio head and neck Ordering Provider: Atlhea Tay P.A-C PROCEDURE: CT ANGIO HEAD AND NECK INDICATIONS: concern for posterior CVA TECHNIQUE: Pre-contrast 4.5 mm thick sections acquired from the foramen magnum to the vertex. After the administration of intravenous contrast, 1 mm thick sections acquired from the aortic arch through the Tow of Lam. Post-contrast 4.5 mm thick sections then re-acquired from the foramen magnum to the vertex. 3-dimensional rdykgdo-tjoijeabt-golxftqgiu (MIP) and/or volume rendering reformats were acquired of the central intracranial vasculature and neck separately. COMPARISON: [facility], CT, CT HEAD/BRAIN WO CON, 02/18/2020, 11:55. FINDINGS: Image quality: Excellent. BRAIN: CSF spaces: Ventricles are normal in size and shape. Basal cisterns are patent. No extra-axial fluid collections. Brain: No midline shift. No intracranial bleeds or masses. Carr-white matter interface appears intact. Skull and face: Calvarium and facial bones appear intact, without suspicious lesions. Orbits appear normal. Sinuses: Sinuses and mastoids are clear. HEAD CT ANGIOGRAPHY: Anterior circulation: Intracranial internal carotid arteries are patent. Atherosclerotic calcifications of the intracranial internal carotid arteries without high-grade stenosis identified. The flow within the middle cerebral arteries is normal and symmetric. The anterior communicating artery is seen. No aneurysms are seen. Posterior circulation: There is a right dominant vertebral artery system. Visualized portions of the vertebral arteries are well opacified and join to form a normal appearing basilar artery. No high-grade stenosis identified. No aneurysms are seen. NECK CT ANGIOGRAPHY: Carotid system: The great vessels demonstrate a conventional anatomy as they arise from the aortic arch. There are atherosclerotic calcifications involving the aortic arch, the visualized origins of the common carotid arteries appear patent. The common carotid arteries demonstrate normal caliber and courses. The bifurcation regions have scattered atherosclerotic calcifications without hemodynamically significant stenoses. The internal carotid arteries demonstrate normal calibers and courses. Posterior circulation: The origins of the vertebral arteries both appear widely patent. There is a right dominant vertebral artery system. The more superior extracranial portions of both vertebral arteries also demonstrate normal courses and calibers. They join to form a normal appearing basilar artery. Soft tissues: Visualized neck soft tissues demonstrate no suspicious abnormalities. Bones: No suspicious bony lesions. Visualized cervical spine appears normally aligned. Multilevel cervical spondylitic changes. IMPRESSION: 1. Scattered atherosclerosis of the neck and intracranial arterial vasculature without hemodynamically significant stenosis identified. No evidence for occlusion, dissection, or aneurysm formation. Incidental note of right dominant vertebral artery system. 2. If there is persistent clinical concern for acute cerebral infarction or ischemia, further evaluation with MRI can be considered. Any quantitative measurements of stenosis were performed using NASCET criteria. Dictated by: Nakul Vaca M.D. on 02/18/2020 at 15:03 Approved by: Nakul Vaca M.D. on 02/18/2020 at 15:13 ECG Data Attestation: I personally reviewed and interpreted this ECG as follows: Prior ECG tracings: available for review (no change from 2018 study) Interpretation: Atrial sensed ventricular paced rhythm, ventricular rate of 68 p.r. interval 202 QRS 1 7 to QT 482 QTC 512 P axis 34 R axis -72 T axis 70 MDM Narrative Medical decision making narrative: This is an uncomfortable appearing 79-year-old the history of hyperlipidemia cardiac pacemaker porphyria cutanea tarda who presents to the emergency department complaining of acute onset of dizziness with nausea and vomiting that began early this morning and has continued since that time. This was affecting his ability to walk, and he had never had similar symptoms. He had recently been in his normal state of health although notably had been doing work outside and not drinking a lot of fluid for the past few days in the sun. Given the patient's age, presentation there was concern for posterior CVA, CT noncontrast was unremarkable, CTA also returned, without evidence of occlusion, dissection or aneurysm. Labs returned unremarkable including a troponin, EKG is unchanged from 2018 study, exam notable for subtle lateral gaze nystagmus on the left, effusion of the left TM neuro exam otherwise unremarkable. Patient's symptoms did improve with Zofran and meclizine however not completely. Patient was discharged home in the care of his , with near complete relief of symptoms, advised to follow-up with his primary care provider, advised to monitor for any new or concerning symptoms and return for re-evaluation if they develop. All questions answered. <Victoria Gillespie, DO - Last Filed: 02/19/20 08:02> Lab Data Labs: Lab Results 02/18/20 02/18/20 02/18/20 Range/Units 11:35 11:35 11:35 WBC 5.0 (4.5-11.0) X10^3/uL RBC 4.64 (4.5-5.9) X10^6/uL Hgb 14.3 (13.5-17.5) g/dL Hct 42.3 (41-53) % MCV 91.1 (80-100) fL MCH 30.9 (26-34) PG MCHC 33.9 (30-36) % RDW 14.8 (11.6-14.8) % Plt Count 167 (150-400) X10^3/uL Neut % (Auto) 75.6 H (50-75) % Lymph % (Auto) 17.8 L (25-40) % Newberry % (Auto) 5.3 (3-14) % Eos % (Auto) 0.8 L (2-4) % Baso % (Auto) 0.5 (0-2) % Neut # (Auto) 3800 (8807-9718) /uL Lymph # (Auto) 900 L (3074-4337) /uL Newberry # (Auto) 300 (0-900) /uL Eos # (Auto) 0 (0-450) /uL Baso # (Auto) 0 (0-100) /uL Sodium 136 L (137-145) mmol/L Potassium 4.3 (3.4-5.1) mmol/L Chloride 103 (98-107) mmol/L Carbon Dioxide 28 (22-32) mmol/L BUN 15 (9-20) mg/dL Creatinine 0.68 (0.66-1.25) mg/dL Estimated GFR > 60.0 (>60) mL/min BUN/Creatinine Ratio 22.1 H (6-22) Glucose 122 H (80-110) mg/dL Calcium 9.1 (8.4-10.2) mg/dL Total Bilirubin 1.2 (0.2-1.3) mg/dL AST 29 (17-59) IU/L ALT 17 (<50) IU/L Alkaline Phosphatase 65 (38-126) U/L Total Creatine Kinase 83 (55-170) U/L CK-MB (CK-2) TNP CK-MB (CK-2) Rel Index TNP Troponin I < 0.012 (0.01-0.034) ng/mL Total Protein 7.2 (6.3-8.2) g/dL Albumin 4.2 (3.5-5.0) g/dL Globulin 3.0 (1.7-4.1) g/dL Albumin/Globulin Ratio 1.4 (1.0-2.8) Lipase 61 (23-300) U/L Urine Dip Bedside Urine Glucose Negative Bedside Urine Bilirubin - Negative Bedside Urine Ketone ++ 40 Urine Specific [place] 1.020 Bedside Urine Occult Blood - Negative Bedside Urine pH 6.0 Bedside Urine Protein - Negative Bedside Urine Urobilinogen - Negative Bedside Urine Nitrite - Negative Bedside Urine Leukocytes - Negative Esterase MDM Narrative Medical decision making narrative: Have seen and evaluated patient myself. He is feeling better after meclizine and Zofran he is doing okay with ambulation however he still feels like his coordination and gait is off. But he is able to walk. Due to his pace maker unable to MRI will get CTA, to help rule out posterior stroke. CTA unremarkable patient's symptoms continue to improve but he is not back to baseline. Symptoms are definitely worse with movement and position consistent with a paroxysmal positional vertigo. Discharge Plan Departure Patient Disposition: Home Clinical Impression: Vertigo Nausea & vomiting Qualifiers: Vomiting type: unspecified Vomiting Intractability: non-intractable Qualified Code(s): R11.2 - Nausea with vomiting, unspecified Discharge Date/Time: 02/18/20 15:42 Instructions: DI for Vertigo, Nausea and Vomiting-Adult, DI for Dizziness-Nonvertigo Activity Restrictions/Additional Instructions: Thank you for allowing us to be part of your care in the emergency department today. Your imaging exams and physical exam and labs all came out okay today, at this time it appears that you are suffering from vertigo, this could be what is called benign paroxysmal positional vertigo which can come and go, or it could be related to the fluid in your left ear. If you continue to have symptoms of vertigo that do not resolve over the next few days you should talk to her primary care provider about possibly seeing a physical therapist, sometimes there are maneuvers you can do to reposition the otoliths or crystals inside your ears which help control your balance. I do want you to see your primary care provider ideally in the next 48-72 hours for a recheck. While things we did look good today it is very important that if you have any new or any worsening symptoms that you do not hesitate to be re-evaluated, seek medical care or return to the emergency department. I have prescribed 2 medications 1 helps with nausea and vomiting (Zofran/ ondansetron) and 1 helps with vertigo and dizziness (meclizine). These medications were E prescribed to the [facility] in [place] as you requested. There is no evidence of an emergent or life threatening illness at this time, but follow up with your doctor in 1-2 days is recommended nonetheless to continue to rule out serious underlying causes of your symptoms. Please call the office for an appointment. Please return to the Emergency Department for any worsening or persistent symptoms. Please take medications as directed. Prescriptions: New ondansetron HCl [Zofran] 4 mg tablet 4 mg PO Q6H Qty: 20 RF: 0 meclizine 12.5 mg tablet 12.5 mg PO BID MDD 25mg PRN (Reason: dizziness) Qty: 20 RF: 0 No Action cholecalciferol (vitamin D3) [Vitamin D3] 1,000 UNIT tablet 2,000 iu PO Q DAY Qty: 0 RF: 0 Referrals: Edward Bowers MD [Primary Care Provider] - <Victoria Gillespie DO - Last Filed: 02/19/20 08:02> Cosign ED Attending Yukiature Attestation: I was immediately available in the department for consultation. Documentation has been reviewed. I agree with assessment and plan.
[2020-02-18 11:45] LABS: Add Manual Diff / Slide Review NO; Basophils Absolute Auto 0 /uL (0-100); Basophils Percent Auto 0.5 % (0-2); Eosinophils Absolute Auto 0 /uL (0-450); Eosinophils Percent Auto 0.8 % (2-4); Hematocrit 42.3 % (41-53); Hemoglobin 14.3 g/dL (13.5-17.5); Lymphocytes Absolute Auto 900 /uL (1100-4500); Lymphocytes Percent Auto 17.8 % (25-40); Mean Corpuscular HGB Conc 33.9 % (30-36); Mean Corpuscular Hemoglobin 30.9 PG (26-34); Mean Corpuscular Volume 91.1 fL (80-100); Monocytes Absolute Auto 300 /uL (0-900); Monocytes Percent Auto 5.3 % (3-14); Neutrophils Absolute Auto 3800 /uL (1500-7000); Neutrophils Percent Auto 75.6 % (50-75); Platelet Count 167 X10^3/uL (150-400); Red Blood Cell Count 4.64 X10^6/uL (4.5-5.9); Red Cell Distribution Width 14.8 % (11.6-14.8)
--- NOTE | 2020-02-18 11:46 | PC.NURSE ---
Patient woke up around 0230 to go to restroom, felt dizziness at that time. Ongoing with two episodes of vomiting. Patient reports working hard in the yard over last couple days with decrease water intake. patient had episode of emesis while sitting up at edge of bed for exam.
--- NOTE | 2020-02-18 11:49 | DI.CT.S_ITS ---
PROCEDURE: CT HEAD/BRAIN WO CON INDICATIONS: acute dizziness, concern for posterior stroke TECHNIQUE: Noncontrast 4.5 mm thick angled axial sections acquired from the foramen magnum to the vertex, with coronal and sagittal reformats. For radiation dose reduction, the following was used: automated exposure control, adjustment of mA and/or kV according to patient size. COMPARISON: [facility], MR, BRAIN (IAC) W AND WO CONTRAST, 10/18/2009, 9:14. FINDINGS: Image quality: Excellent. CSF spaces: Basal cisterns are patent. No extra-axial fluid collections. The ventricles are symmetric in size and shape. Brain: No intracranial bleeds or masses. There is cerebral volume loss for age, with resultant ventricular and sulcal prominence. There are periventricular and deep white matter chronic small vessel ischemic changes. There is intracranial internal carotid artery atherosclerosis. Skull and face: Calvarium and visualized facial bones appear intact, without suspicious lesions. Sinuses: Visualized sinuses and mastoids are clear. IMPRESSION: No findings of acute infarction are detected by this noncontrast head CT. No acute intracranial hemorrhage is seen. Note is made of age-appropriate brain parenchymal volume loss and chronic small vessel ischemic changes. If there is strong clinical suspicion for an acute stroke, please consider an MRI for further evaluation, as it is more sensitive (assuming that there is no contraindication to MRI). Dictated by: Sammy Dow M.D. on 02/18/2020 at 11:23 Approved by: Sammy Dow M.D. on 02/18/2020 at 11:24
[2020-02-18 11:58] LABS: Alanine Aminotransferase 17 IU/L (<50); Albumin 4.2 g/dL (3.5-5.0); Albumin Globulin Ratio 1.4 (1.0-2.8); Alkaline Phosphatase 65 U/L (38-126); Aspartate Aminotransferase 29 IU/L (17-59); BUN Creatinine Ratio 22.1 (6-22); Bilirubin Total 1.2 mg/dL (0.2-1.3); Blood Urea Nitrogen 15 mg/dL (9-20); Calcium 9.1 mg/dL (8.4-10.2); Carbon Dioxide 28 mmol/L (22-32); Chloride 103 mmol/L (98-107); Creatine Kinase 83 U/L (55-170); Estimated Glomerular Filt Rate > 60.0 mL/min (>60); Glucose 122 mg/dL (80-110); HEMOLYSIS < 15 (0-50); Potassium 4.3 mmol/L (3.4-5.1); Sodium 136 mmol/L (137-145); Total Protein 7.2 g/dL (6.3-8.2)
[2020-02-18] MEDS: MECLIZINE HCL 12.5 MG TABLET 25 MG PO (12:00)
[2020-02-18] MEDS: ONDANSETRON 4 MG/2 ML INJ IV (12:00)
[2020-02-18] MEDS: SODIUM CHLORIDE 0.9% 1,000 ML 500 ML IV (12:00)
[2020-02-18 12:09] LABS: Troponin I < 0.012 ng/mL (0.01-0.034)
[2020-02-18 12:14] LABS: Lipase 61 U/L (23-300)
--- NOTE | 2020-02-18 13:40 | PC.NURSE ---
Patient ambulated around the ER. stated his gait is slower than normal and unsteady. Patient reported some dizziness but not as bad as this morning.
--- NOTE | 2020-02-18 13:52 | DI.CT.S_ITS ---
PROCEDURE: CT ANGIO HEAD AND NECK INDICATIONS: concern for posterior CVA TECHNIQUE: Pre-contrast 4.5 mm thick sections acquired from the foramen magnum to the vertex. After the administration of intravenous contrast, 1 mm thick sections acquired from the aortic arch through the [place] of Lma. Post-contrast 4.5 mm thick sections then re-acquired from the foramen magnum to the vertex. 3-dimensional utvworp-zzfbrfoup-levephtity (MIP) and/or volume rendering reformats were acquired of the central intracranial vasculature and neck separately. COMPARISON: [facility], CT, CT HEAD/BRAIN WO CON, 02/18/2020, 11:55. FINDINGS: Image quality: Excellent. BRAIN: CSF spaces: Ventricles are normal in size and shape. Basal cisterns are patent. No extra-axial fluid collections. Brain: No midline shift. No intracranial bleeds or masses. Carr-white matter interface appears intact. Skull and face: Calvarium and facial bones appear intact, without suspicious lesions. Orbits appear normal. Sinuses: Sinuses and mastoids are clear. HEAD CT ANGIOGRAPHY: Anterior circulation: Intracranial internal carotid arteries are patent. Atherosclerotic calcifications of the intracranial internal carotid arteries without high-grade stenosis identified. The flow within the middle cerebral arteries is normal and symmetric. The anterior communicating artery is seen. No aneurysms are seen. Posterior circulation: There is a right dominant vertebral artery system. Visualized portions of the vertebral arteries are well opacified and join to form a normal appearing basilar artery. No high-grade stenosis identified. No aneurysms are seen. NECK CT ANGIOGRAPHY: Carotid system: The great vessels demonstrate a conventional anatomy as they arise from the aortic arch. There are atherosclerotic calcifications involving the aortic arch, the visualized origins of the common carotid arteries appear patent. The common carotid arteries demonstrate normal caliber and courses. The bifurcation regions have scattered atherosclerotic calcifications without hemodynamically significant stenoses. The internal carotid arteries demonstrate normal calibers and courses. Posterior circulation: The origins of the vertebral arteries both appear widely patent. There is a right dominant vertebral artery system. The more superior extracranial portions of both vertebral arteries also demonstrate normal courses and calibers. They join to form a normal appearing basilar artery. Soft tissues: Visualized neck soft tissues demonstrate no suspicious abnormalities. Bones: No suspicious bony lesions. Visualized cervical spine appears normally aligned. Multilevel cervical spondylitic changes. IMPRESSION: 1. Scattered atherosclerosis of the neck and intracranial arterial vasculature without hemodynamically significant stenosis identified. No evidence for occlusion, dissection, or aneurysm formation. Incidental note of right dominant vertebral artery system. 2. If there is persistent clinical concern for acute cerebral infarction or ischemia, further evaluation with MRI can be considered. Any quantitative measurements of stenosis were performed using NASCET criteria. Dictated by: Nakul Vaca M.D. on 02/18/2020 at 15:03 Approved by: Naukl Vaca M.D. on 02/18/2020 at 15:13
== END 2020-02-18 15:42 | disposition home or self-care (01) ==
PROVIDERS: Emergency Provider Student in an Organized Health Care Education/Training Program; PCP Family Medicine
DX: R42 Dizziness and giddiness (principal); R11.2 Nausea with vomiting, unspecified; E78.5 Hyperlipidemia, unspecified; Z95.0 Presence of cardiac pacemaker
CPT/HCPCS: 36415; 70450; 70496; 70498; 71045; 80053; 81003; 82550; 83690; 84484; 85025; 93005; 96361; 96374; 99284; J2405; Q9967

== ENCOUNTER → 2020-03-05 10:51 | Outpatient (CLI) | payer MEDICARE, SELFPAY ==
--- NOTE | 2020-03-05 | DI.CT.S_ITS ---
PROCEDURE: CT UE RT WO CON INDICATIONS: Pain in right wrist TECHNIQUE: Noncontrast 1 mm axial sections acquired through the carpal bones, with coronal and sagittal reformats. COMPARISON: [facility] [place], CR, XR WRIST 3+ VIEWS RIGHT, 03/01/2020, 10:20. [facility] [place], , [place] WRIST INJECTION MR/CT RT, 03/05/2020, 10:10. FINDINGS: Image quality: Excellent. Bones: There is no acute fracture or dislocation. Severe degenerative changes are seen at the radioulnar articulation with full-thickness joint space narrowing and subchondral cystic changes. There is mild narrowing of the radioscaphoid articulation with subchondral cystic changes. There is also severe narrowing of the ulnar triquetral space with [id number]-[id number] articulation, compatible with full-thickness tearing of the triangular fibrocartilage. There is mild widening of the scapholunate interval to 3 mm, which may indicate scapholunate ligament degeneration or partial tearing. Additional degenerative changes are seen throughout the wrist including at the distal radial ulnar joint, pisotriquetral joint, triscaphe joint, and the 1st carpometacarpal joint. Soft tissues: Small amount of contrast material is seen at the dorsum of the wrist related to attempted arthrogram injection. The articular cartilages, ligaments, and tendons are not well evaluated with CT. There is mild chondrocalcinosis at the volar aspect of the wrist, which is nonspecific but can be associated with calcium pyrophosphate deposition. No acute soft tissue edema is seen. The intrinsic muscles of the hand demonstrate normal bulk. IMPRESSION: 1. 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 2. Mild widening of the scapholunate interval is compatible scapholunate degeneration or partial tearing. No proximal migration of the capitate is seen. Dictated by: Naun Aviles M.D. on 03/05/2020 at 12:28 Approved by: Naun Aviles M.D. on 03/05/2020 at 12:39
--- NOTE | 2020-03-05 | DI.RAD.S_ITS ---
PROCEDURE: [place] WRIST INJECTION MR/CT RT INDICATIONS: Pain in right wrist COMPARISON: None. TECHNIQUE: After informed consent had been obtained, the wrist was examined fluoroscopically, and a site chosen for injection of the radiocarpal compartment from a dorsal approach. Skin was prepped and draped in a sterile fashion and 1% lidocaine infiltrated from the skin down to the articular surface. Using a 25 gauge needle multiple attempts were made to access radiocarpal joint under fluoroscopic guidance. Despite repositioning of the wrist and attempts at multiple access points the radiocarpal joint could not be accessed likely related to severe radiocarpal joint osteophytic degenerative change. The patient experienced no complications throughout the procedure and left the fluoroscopic suite in no apparent distress. FINDINGS: A single fluoroscopic spot image demonstrates injected iodinated contrast in the dorsal soft tissues tracking along extensor tendons.. IMPRESSION: Unsuccessful fluoroscopic-guided administration of dilute iodinated contrast solution for wrist MR arthrogram. Dictated by: Raegan Sandy MD, PhD on 03/05/2020 at 12:35 Approved by: Raegan Sandy MD, PhD on 03/05/2020 at 12:37
== END ==
PROVIDERS: PCP Family Medicine; Referring Provider Family Medicine; Visit Provider Orthopaedic Surgery
DX: M25.531 Pain in right wrist (principal); S63.591A Other specified sprain of right wrist, initial encounter
CPT/HCPCS: 20605; 73201; 77002

== ENCOUNTER 2020-03-25 08:10 | Outpatient (RCR) | payer MEDICARE, SELFPAY ==
--- NOTE | 2020-03-25 15:45 | PT.OPPOC ---
Physical, Occupational & Speech Therapy At [facility] Current Diagnoses Dizziness and giddiness (03/25/20) Visit Care Team Role Provider Type Hermes Mcqueen DO Attending Provider Physician Primary Care Provider Referring Provider Specialty: Family Practice Address: [address] [place] [address], [id number] Email: [email or web address] Plan Of Care PT-OP-T Assessment and Plan Start: 03/25/20 08:14 Freq: Status: Active Protocol: Document 03/25/20 08:30 AMB (Rec: 03/26/20 15:44 AMB [email or web address]) Physical Therapy Assessment Rehab Potential Rehabilitation Potential Good Evaluation Complexity Number of Personal Factors/Comorbidities 0 Number of Body Systems Impaired 1-2 Clinical Presentation at Evaluation Stable Goals One Impairment Maggy manuever Short Term Goal (STG) Pt will be instructed in safe Maggy manuever and role of the vestibular system for future home use. STG Duration 1 visit Assessment Summary Assessment Chase attended physical therapy 1 month s/p acute exacerbation of dizziness and nausea. Workup at ED did not show any signs of CVA and was diagnosed with likely BPPV. Pt was seen in this clinic almost one month later and reports complete resolution of symptoms. No nystagmus or increase in symptoms was seen in the clinic today. Pt concerned about if symptoms return, instructed if they are different in nature to seek medical care, but also given handout on Maggy manuever, but instructed that you need to know which ear is affected to perform correctly. Chase is no longer dizzy and as we were not able to bring on any symptoms in the clinic, is therefore discharged. Physical Therapy Plan Frequency and Duration Frequency of Treatment 1x/Week Duration of Treatment 1 week Plan of Care Start Date 03/25/20 Plan of Care End Date 04/01/20 Therapeutic Interventions Therapeutic Interventions Vestibular Rehabilitation Discharge Physical Therapy Discharge Reasons Goals Met Discharge Comments Pt no longer symptomatic Plan of Care Dates Plan of Care Start Date 03/25/20 Plan of Care End Date 04/01/20 Electronically Signed by: Melanie Sheffield, PT 03/26/20 [id number] Please Sign and Return: I have reviewed this Plan of Care and certify that the skilled therapy services above are required to meet the patient?s needs. Physician Signature Date Printed Name and Credentials Clinical Instructor Signature Printed Name and Credentials
--- NOTE | 2020-03-25 15:45 | PT.OIE ---
Current Diagnoses Dizziness and giddiness (03/25/20) Past Medical History (Last Updated 02/25/20 @ 16:09 by Hermes Mcqueen DO) Acute bronchitis (Acute ~10/2017) Carpal tunnel syndrome of left wrist (Acute) Cough (Acute) Edema (Acute) Gout (Chronic 1994) Hearing deficit (Acute) Hearing loss (Acute) High degree atrioventricular block (Acute) History of bradycardia (Acute) History of dizziness (Acute) Hyperlipidemia (Acute) Left shoulder pain (Acute) Lesion of ulnar nerve, left upper limb (Acute) Neck pain (Acute) Obese (Acute) Peyronie disease (Acute) Porphyria cutanea tarda (Chronic 1986) Radicular pain in left arm (Acute) Sigmoid diverticulosis (Acute) Past Surgical History (Last Reviewed 03/14/18 @ 20:25 by Flaco Villarreal DO) History of colonoscopy (Acute) Hx of cholecystectomy (Acute ~1999) Status post cholecystectomy (Resolved 1999) Visit Care Team Role Provider Type Hermes Mcqueen DO Attending Provider Physician Primary Care Provider Referring Provider Specialty: [facility] Address: [address] [place] [address] Email: [email or web address] Physical Therapy Initial Evaluation PT-OP-A Visit Information Start: 03/25/20 08:14 Freq: Status: Active Protocol: Document 03/25/20 08:30 AMB (Rec: 03/26/20 15:44 AMB [email or web address]) Out-Patient Physical Therapy Visit Information Visit Information Visit Type Initial Evaluation Visit Start Time 08:15 Visit Stop Time 09:00 Total Visit Minutes 45 Visit Number 1 PT-OP-B Current Condition Start: 03/25/20 08:14 Freq: Status: Active Protocol: Document 03/25/20 08:28 AMB (Rec: 03/25/20 08:56 AMB [id number]) Current Condition History of Current Condition Onset Date 02/18/20 Current Complaints dizziness History of Current Condition Chase reports he was working on the car and became dizzy and nauseous, so much that he went to the ED. Has had minor symptoms for years but this last time was awful and went to the ED. Since that time his symptoms have resolved and he has returned to his prior level of function, he is working on the car, and working around the house without any dizziness. Currently he can lie down in bed and get back up witout any dizziness or nausea. Treatment Goals Patient/Caregiver Goals Neighbor told him about what sounds like the Maggy maneuver and he is wondering if that is what he needs PT-OP-C Subjective Start: 03/25/20 08:14 Freq: Status: Active Protocol: Document 03/25/20 08:30 AMB (Rec: 03/26/20 15:44 AMB [email or web address]) Patient Questionnaires Dizziness Handicap Inventory DHI Score 0 DHI Functional Impairment 0% Impaired (Score 0) PT-OP-O Vestibular Start: 03/25/20 08:14 Freq: Status: Active Protocol: Document 03/25/20 08:30 AMB (Rec: 03/26/20 15:44 AMB [email or web address]) Vestibular Assessment Screening Tests Vestibular Artery Screen Negative Visual Testing Smooth Pursuits Horizontal WNL Smooth Pursuits Vertical WNL Saccades Horizontal WNL Saccades Vertical WNL Positional Testing [place]-Hallpike Negative Left,Negative Right Rolling Test Negative Left,Negative Right PT-OP-T Assessment and Plan Start: 03/25/20 08:14 Freq: Status: Active Protocol: Document 03/25/20 08:30 AMB (Rec: 03/26/20 15:44 AMB [email or web address]) Physical Therapy Assessment Rehab Potential Rehabilitation Potential Good Evaluation Complexity Number of Personal Factors/Comorbidities 0 Number of Body Systems Impaired 1-2 Clinical Presentation at Evaluation Stable Goals One Impairment Maggy manuever Short Term Goal (STG) Pt will be instructed in safe Maggy manuever and role of the vestibular system for future home use. STG Duration 1 visit Assessment Summary Assessment Chase attended physical therapy 1 month s/p acute exacerbation of dizziness and nausea. Workup at ED did not show any signs of CVA and was diagnosed with likely BPPV. Pt was seen in this clinic almost one month later and reports complete resolution of symptoms. No nystagmus or increase in symptoms was seen in the clinic today. Pt concerned about if symptoms return, instructed if they are different in nature to seek medical care, but also given handout on Maggy manuever, but instructed that you need to know which ear is affected to perform correctly. Chase is no longer dizzy and as we were not able to bring on any symptoms in the clinic, is therefore discharged. Physical Therapy Plan Frequency and Duration Frequency of Treatment 1x/Week Duration of Treatment 1 week Plan of Care Start Date 03/25/20 Plan of Care End Date 04/01/20 Therapeutic Interventions Therapeutic Interventions Vestibular Rehabilitation Discharge Physical Therapy Discharge Reasons Goals Met Discharge Comments Pt no longer symptomatic
== END 2020-03-29 08:47 ==
LOC: PHYS 08:10
PROVIDERS: PCP Family Medicine; Referring Provider Family Medicine; Visit Provider Family Medicine
DX: R42 Dizziness and giddiness (principal)
CPT/HCPCS: 97161

== ENCOUNTER → 2020-09-14 12:51 | Outpatient (CLI) | payer MEDICARE, SELFPAY ==
[2020-09-14 13:14] LABS: Add Manual Diff / Slide Review NO; Basophils Absolute Auto 0 /uL (0-100); Basophils Percent Auto 0.8 % (0-2); Eosinophils Absolute Auto 100 /uL (0-450); Eosinophils Percent Auto 2.5 % (2-4); Hematocrit 42.5 % (41-53); Hemoglobin 14.4 g/dL (13.5-17.5); Lymphocytes Absolute Auto 1800 /uL (1100-4500); Lymphocytes Percent Auto 30.7 % (25-40); Mean Corpuscular HGB Conc 33.9 % (30-36); Mean Corpuscular Hemoglobin 30.6 PG (26-34); Mean Corpuscular Volume 90.3 fL (80-100); Monocytes Absolute Auto 400 /uL (0-900); Monocytes Percent Auto 6.1 % (3-14); Neutrophils Absolute Auto 3500 /uL (1500-7000); Neutrophils Percent Auto 59.9 % (50-75); Platelet Count 173 X10^3/uL (150-400); Red Cell Distribution Width 14.2 % (11.6-14.8); White Blood Cell Count 5.8 X10^3/uL (4.5-11.0)
[2020-09-14 13:44] LABS: Alanine Aminotransferase 18 IU/L (<50); Albumin 4.2 g/dL (3.5-5.0); Albumin Globulin Ratio 1.6 (1.0-2.8); Alkaline Phosphatase 69 U/L (38-126); Aspartate Aminotransferase 33 IU/L (17-59); BUN Creatinine Ratio 22.1 (6-22); Bilirubin Total 0.8 mg/dL (0.2-1.3); Blood Urea Nitrogen 19 mg/dL (9-20); Calcium 9.2 mg/dL (8.4-10.2); Carbon Dioxide 27 mmol/L (22-32); Chloride 102 mmol/L (98-107); Estimated Glomerular Filt Rate > 60.0 mL/min (>60); Globulin 2.7 g/dL (1.7-4.1); Glucose 117 mg/dL (80-110); HEMOLYSIS < 15 (0-50); Potassium 4.3 mmol/L (3.4-5.1); Sodium 138 mmol/L (137-145); Total Protein 6.9 g/dL (6.3-8.2)
[2020-09-14 14:55] LABS: Total Iron Binding Capacity 367 ug/dL (261-462); Transferrin 281 mg/dL (206-381)
[2020-09-15 16:26] LABS: HEMOLYSIS < 15 (0-50); Iron 113 ug/dL (49-181); Percent Iron Saturation 31 % (20-50)
== END ==
PROVIDERS: PCP Family Medicine; Referring Provider Family Medicine; Visit Provider Family Medicine
DX: E80.1 Porphyria cutanea tarda (principal)
CPT/HCPCS: 36415; 80053; 83540; 83550; 85025

== ENCOUNTER → 2020-10-01 14:51 | Outpatient (CLI) | payer MEDICARE, SELFPAY ==
--- NOTE | 2020-10-01 14:55 | DI.ECHO.S_ITS ---
[place] +---------+ [facility] +---------+ : : [address] : [address] : [address] : : : : [id number] : : : : Phone: [phone]---------+ Echocardiogram Report + + :Name: MAYELA PALOMINO Study Date: 10/01/2020 Height: 69 in : :[facility] : Weight: 210 lb : : Gender: Male BSA: 2.1 m2 : :: 1940 Age: 80 yrs BP: 143/76 mmHg: :Reason For Study: Tricuspid Valve - Regurgitation : :Ordering Physician: Keith : :Sammie Arcos Performed By: Gentry Lynne : :Referring: KEITH ARCOS : + + Interpretation Summary The left ventricle is normal in size. Left ventricular ejection fraction is estimated to be 55 +/- 5%. There has been no significant change in LVEF since the previous exam. The right ventricle is moderately dilated. There is a pacemaker lead in the right ventricle. Right ventricular systolic function is at the lower limits of normal. There is mild tricuspid regurgitation. Compared to the prior echo exam, there has been a decrease in TR severity. The right ventricular systolic pressure is estimated to be at least 35 mmHg based on an estimated right atrial pressure of 3 mm Hg. Procedure: A two-dimensional transthoracic echocardiogram with color flow and Doppler was performed. The study quality was technically adequate. Comparison is made with the echocardiogram of 08/19/2019. The patient was in sinus rhythm with heart rates between 68-73 bpm during the exam. The patient had a bundle branch block rhythm during the exam. Left Ventricle: The left ventricle is normal in size. Proximal septal thickening is noted. There is no thrombus. Left ventricular ejection fraction is estimated to be 55 +/- 5%. There has been no significant change since the previous exam. Septal motion is consistent with conduction abnormality. There is septal wall hypokinesis. There is apical inferior wall hypokinesis. Compared to the prior exam, the left ventricular wall motion has not changed. Diastolic parameters suggest a relaxation abnormality of the left ventricle, consistent with probable normal filling pressures. Right Ventricle: The right ventricle is moderately dilated. There is a pacemaker lead in the right ventricle. Right ventricular systolic function is at the lower limits of normal. Atria: The left atrial size is normal. The right atrium is mild to moderately dilated. There is no Doppler evidence for an interatrial shunt. Mitral Valve: There is mild mitral annular calcification. There is trace mitral regurgitation. Compared to the prior echo study, there has been a decrease in the severity of mitral regurgitation. Aortic Valve: There is mild aortic valve sclerosis. There is discrete nodular thickening of the right coronary cusp. The aortic valve is trileaflet. There is no aortic valve stenosis. No aortic regurgitation is present. Tricuspid Valve: The tricuspid valve is not well visualized, but is grossly normal. There is mild tricuspid regurgitation. The right ventricular systolic pressure is estimated to be at least 35 mmHg based on an estimated right atrial pressure of 3 mm Hg. Compared to the prior echo exam, there has been a decrease in TR severity. Pulmonic Valve: The pulmonic valve is not well visualized. There is no pulmonic valvular regurgitation. Great Vessels: The aortic root is normal size. The dimensions of the ascending aorta are normal. The IVC is of normal diameter and collapses greater than 50% with a sniff. This suggests a low right atrial pressure of 3 mm Hg. Pericardium/ Pleura There is no pericardial effusion. There is no pleural effusion. MMode/2D Measurements & Calculations LVIDd: 4.7 cm LVOT diam: 2.0 cm LVIDs: 3.2 cm Ao root diam: 3.2 cm FS: 32.0 % asc Aorta Diam: 3.0 cm IVSd: 0.78 cm LVPWd: 0.99 cm LV allen. diameter/BSA (cm/m^2): 2.2 LV sys. diameter/BSA (cm/m^2): 1.5 LA A2 area: 15.4 cm2 RA area: 17.4 cm2 LA A4 area: 16.7 cm2 LA length (vol): 5.2 cm LA vol: 42.5 ml LA vol index: 20.1 ml/m2 RVD1 (basal): 3.7 cm TAPSE: 2.6 cm Doppler Measurements & Calculations Ao V2 max: 197.5 cm/sec LVOT Max Yoan: 77.8 cm/sec Ao V2 mean: 141.1 cm/sec LV V1 max P.4 mmHg Ao max P.6 mmHg LV V1 VTI: 16.9 cm Ao mean P.9 mmHg MAGALI(I,D): 1.4 cm2 Ao V2 VTI: 39.2 cm MAGALI(V,D): 1.2 cm2 sev ratio: 0.43 MAGALI indexed to BSA (cm^2/m^2): 0.64 MV E max yoan: 67.0 cm/sec TR max yoan: 283.1 cm/sec MV A max yoan: 85.6 cm/sec TR max P.1 mmHg MV E/A: 0.78 PA V2 max: 182.3 cm/sec Med Peak E' Yoan: 7.4 cm/sec PA V2 mean: 105.8 cm/sec E/E' med: 9.0 PA mean P.5 mmHg Lat Peak E' Yona: 7.9 cm/sec PA pr(Accel): 54.2 mmHg E/E' lat: 8.5 E/e' average: 8.8 MV dec time: 0.27 sec SV(LVOT): 53.1 ml Reading Physician:09:40 AM
== END ==
PROVIDERS: PCP Family Medicine; Referring Provider Internal Medicine Cardiovascular Disease; Visit Provider Internal Medicine Cardiovascular Disease
DX: I36.1 Nonrheumatic tricuspid (valve) insufficiency (principal); Z95.0 Presence of cardiac pacemaker
CPT/HCPCS: C8929; Q9957

== ENCOUNTER → 2020-11-24 09:03 | Outpatient (CLI) | payer MEDICARE, SELFPAY ==
[2020-11-24 10:56] LABS: COVID19 -Nasal RAPID Negative (Negative)
== END ==
PROVIDERS: PCP Family Medicine; Visit Provider Nurse Practitioner Family
DX: Z20.822 Contact with and (suspected) exposure to COVID-19 (principal)
CPT/HCPCS: 87635; C9803

== ENCOUNTER → 2020-11-25 09:13 | Outpatient (CLI) | payer MEDICARE, SELFPAY ==
--- NOTE | 2020-11-25 15:04 | PM.TREADMILL ---
Cardiac Stress Test Report Referral & Results Date Patient Seen: 11/25/20 Time Patient Seen: 15:04 Requesting provider: Zhen Chandler Indication: chest pain Rest ECG: AV paced rhythm Procedure Note: After Lexiscan injection had minimal dyspnea but no chest pain No significant ST changes after Lexiscan injection Impression: normal Lexiscan stress test Please note: Actual ECG tracings can be found in the PACS system.
--- NOTE | 2020-11-25 17:04 | DI.NM.S_ITS ---
DATE OF SERVICE: 11/25/2020 PROCEDURE PERFORMED: Vasodilator pharmacologic stress and rest myocardial perfusion imaging with gating to assess ejection fraction and regional wall motion. ORDERING PROVIDER: Dr. Zhen Chandler. INDICATIONS: The patient is an 80-year-old male with a pacemaker with atypical chest discomfort. PHARMACOLOGIC VASODILATOR STRESS: Per protocol, 0.4 mg of regadenoson was infused with mild dyspnea but no chest discomfort. He had a normal hemodynamic response. His resting ECG shows an AV paced rhythm that precludes evaluation of the ST segments, but there are no obvious changes. There were no significant arrhythmias. Per protocol, 26.5 millicuries of technetium-99m Myoview was injected and the patient was imaged 20 minutes later using a gated SPECT acquisition protocol. Earlier in the day while at rest, he had been injected with 11.6 millicuries of technetium-99m Myoview and was imaged 30 minutes later, again using a gated SPECT acquisition protocol. FINDINGS: 1. Raw data: There is fair myocardial tracer uptake with some evidence for significant diaphragmatic attenuation. Lung/heart ratio was normal at 0.34 with a normal TID ratio of 0.94. 2. Quantitated gated SPECT: Post-stress ejection fraction is estimated at 71% without any focal wall motion abnormality, although there is a mild dyssynchronous contraction pattern, likely due to his paced rhythm. His resting ejection fraction is 75% with an identical contraction pattern. Resting end-diastolic volume is normal at 92 mL. 3. Myocardial perfusion imaging: Post-stress supine images shows a fairly normal myocardial perfusion pattern with mildly reduced tracer activity throughout the entire inferior wall although this essentially resolves on the prone images, suggesting this likely reflects diaphragmatic attenuation artifact. The resting images are of somewhat inferior quality, but without any obvious areas of improvement. IMPRESSION: 1. Normal myocardial perfusion study. 2. Mild fixed inferior defect that resolves on prone imaging, consistent with diaphragmatic attenuation. There is no compelling evidence for myocardial ischemia or previous myocardial infarction. 3. Normal left ventricular systolic function without any focal wall motion abnormality. 4. No angina with pharmacologic vasodilator stress. ST segments cannot be interpreted because of his atrioventricular paced rhythm. 5. Compared with his previous perfusion study from 11/15/2009, a similar perfusion pattern is identified. There was some evidence for diaphragmatic attenuation artifact on that exam, as well. His post-stress ejection fraction then was 81%. Ray White - Phan/roxie doc#: [id number]/job#: [id number] dd: 11/25/2020 16:15:00 dt: 11/25/2020 16:25:00 DICTATING MD/COPIES TO: Yobani Ferguson MD; Zhen Chandler MD COPIES MNE: TIFFANI;
== END ==
PROVIDERS: PCP Family Medicine; Referring Provider Internal Medicine Cardiovascular Disease; Visit Provider Internal Medicine Cardiovascular Disease
DX: R07.89 Other chest pain (principal); Z95.0 Presence of cardiac pacemaker
CPT/HCPCS: 78452; 93017; A9502; J2785

== ENCOUNTER → 2021-03-22 10:20 | Outpatient (CLI) | payer MEDICARE, SELFPAY ==
[2021-03-22 10:55] LABS: Add Manual Diff / Slide Review NO; Basophils Absolute Auto 100 /uL (0-100); Basophils Percent Auto 0.8 % (0-2); Eosinophils Absolute Auto 100 /uL (0-450); Eosinophils Percent Auto 1.1 % (2-4); Hematocrit 43.9 % (41-53); Hemoglobin 14.4 g/dL (13.5-17.5); Lymphocytes Absolute Auto 1400 /uL (1100-4500); Lymphocytes Percent Auto 22.1 % (25-40); Mean Corpuscular HGB Conc 32.9 % (30-36); Mean Corpuscular Hemoglobin 29.8 PG (26-34); Mean Corpuscular Volume 90.7 fL (80-100); Monocytes Absolute Auto 400 /uL (0-900); Monocytes Percent Auto 6.9 % (3-14); Neutrophils Absolute Auto 4200 /uL (1500-7000); Neutrophils Percent Auto 69.1 % (50-75); Platelet Count 183 X10^3/uL (150-400); Red Blood Cell Count 4.84 X10^6/uL (4.5-5.9); Red Cell Distribution Width 14.7 % (11.6-14.8); White Blood Cell Count 6.1 X10^3/uL (4.5-11.0)
[2021-03-22 11:25] LABS: HEMOLYSIS < 15 (0-50); Iron 83 ug/dL (49-181)
[2021-03-22 11:29] LABS: Alanine Aminotransferase 16 IU/L (<50); Albumin 4.4 g/dL (3.5-5.0); Albumin Globulin Ratio 1.7 (1.0-2.8); Alkaline Phosphatase 81 U/L (38-126); Aspartate Aminotransferase 30 IU/L (17-59); BUN Creatinine Ratio 34.4 (6-22); Bilirubin Total 1.1 mg/dL (0.2-1.3); Blood Urea Nitrogen 21 mg/dL (9-20); Calcium 9.1 mg/dL (8.4-10.2); Carbon Dioxide 25 mmol/L (22-32); Chloride 101 mmol/L (98-107); Estimated Glomerular Filt Rate > 60.0 mL/min (>60); Globulin 2.6 g/dL (1.7-4.1); Glucose 104 mg/dL (80-110); HEMOLYSIS 17 (0-50); Potassium 4.6 mmol/L (3.4-5.1); Sodium 135 mmol/L (137-145); Uric Acid 4.8 mg/dL (3.5-8.5)
[2021-03-22 11:41] LABS: Percent Iron Saturation 24 % (20-50); Total Iron Binding Capacity 348 ug/dL (261-462); Transferrin 260 mg/dL (206-381)
[2021-03-22 12:00] LABS: Prostate Specific Antigen 2.12 ng/mL (0.10-4.00)
[2021-03-22 12:04] LABS: Ferritin 53 ng/mL (18-464)
[2021-03-23 13:30] LABS: Cholesterol 126 mg/dL (140-199); HDL Cholesterol 43 mg/dL (40-60); LDL Cholesterol Calculated 63 mg/dL (<100); Triglycerides 98 mg/dL (35-150)
[2021-03-25 12:35] LABS: Fecal Immunochemical Test Negative (Negative)
== END ==
PROVIDERS: PCP Family Medicine; Referring Provider Family Medicine; Visit Provider Family Medicine
DX: Z00.00 Encounter for general adult medical examination without abnormal findings (principal); E78.2 Mixed hyperlipidemia; E80.1 Porphyria cutanea tarda
CPT/HCPCS: 36415; 80053; 80061; 82274; 82728; 83540; 83550; 84153; 84550; 85025

== ENCOUNTER 2021-07-12 17:31 | Emergency (ER) | payer MEDICARE, SELFPAY ==
[2021-07-12] VITALS (10 sets, daily range): BP systolic 142–192; BP diastolic 63–92; PULSE 75–90; RESP 12–39; O2SAT 93–99; BMI 31.0
--- NOTE | 2021-07-12 17:34 | DI.RAD.S_ITS ---
PROCEDURE: XR CHEST 1V INDICATIONS: chest pain TECHNIQUE: One view of the chest was acquired. COMPARISON: [facility], CR, XR CHEST 1V, 02/18/2020, 11:36. FINDINGS: Surgical changes and devices: Left-sided dual-chamber pacemaker present. Lungs and pleura: Lungs are clear. No pleural effusions or pneumothorax. Mediastinum: Mediastinal contours appear normal. Heart size is enlarged. No vascular congestion.. Bones and chest wall: Left-sided thoracotomy changes noted. IMPRESSION: Cardiomegaly without vascular congestion. Pacemaker. Approved by: Nitin Polanco M.D. on 07/12/2021 at 17:10
[2021-07-12] MEDS: ASPIRIN 81 MG CHEW TAB 324 MG PO (17:51)
[2021-07-12 17:56] LABS: Add Manual Diff / Slide Review NO; Basophils Absolute Auto 0 /uL (0-100); Basophils Percent Auto 0.4 % (0-2); Eosinophils Absolute Auto 100 /uL (0-450); Eosinophils Percent Auto 1.8 % (2-4); Hematocrit 42.7 % (41-53); Hemoglobin 14.5 g/dL (13.5-17.5); Lymphocytes Absolute Auto 1600 /uL (1100-4500); Lymphocytes Percent Auto 21.5 % (25-40); Mean Corpuscular Hemoglobin 30.5 PG (26-34); Mean Corpuscular Volume 89.7 fL (80-100); Monocytes Absolute Auto 600 /uL (0-900); Monocytes Percent Auto 8.7 % (3-14); Neutrophils Absolute Auto 5000 /uL (1500-7000); Neutrophils Percent Auto 67.6 % (50-75); Platelet Count 165 X10^3/uL (150-400); Red Blood Cell Count 4.76 X10^6/uL (4.5-5.9); Red Cell Distribution Width 14.5 % (11.6-14.8); White Blood Cell Count 7.4 X10^3/uL (4.5-11.0)
[2021-07-12 17:57] LABS: Prothrombin Time 10.9 SECONDS (10.1-12.7)
[2021-07-12 17:59] LABS: PTT Partial Thromboplastin Tim 33 SECONDS (26.4-36.2)
[2021-07-12 18:03] LABS: Alanine Aminotransferase 17 IU/L (<50); Albumin 4.5 g/dL (3.5-5.0); Albumin Globulin Ratio 1.4 (1.0-2.8); Alkaline Phosphatase 66 U/L (38-126); Aspartate Aminotransferase 27 IU/L (17-59); Bilirubin Total 0.8 mg/dL (0.2-1.3); Blood Urea Nitrogen 17 mg/dL (9-20); Calcium 9.4 mg/dL (8.4-10.2); Carbon Dioxide 31 mmol/L (22-32); Chloride 101 mmol/L (98-107); Creatine Kinase 83 U/L (55-170); Estimated Glomerular Filt Rate > 60.0 mL/min (>60); Globulin 3.3 g/dL (1.7-4.1); Glucose 108 mg/dL (80-110); Lipase 138 U/L (23-300); Magnesium 2.2 mg/dL (1.6-2.3); Potassium 3.9 mmol/L (3.4-5.1); Sodium 138 mmol/L (137-145); Total Protein 7.8 g/dL (6.3-8.2)
--- NOTE | 2021-07-12 18:08 | ED.CHESTPAIN ---
HPI - Chest Pain General Chief Complaint: Chest Pain Stated Complaint: chest, jaw and arm pain - sent by [facility] Time Seen by Provider: 07/12/21 17:46 Source: patient and family Mode of arrival: Ambulatory History of Present Illness HPI narrative: 81-year-old male former smoker with pacemaker presents with pain in his L shoulder late this morning which was followed by left anterior chest pain. He his pain was worse with deep breaths, motion and use of his left arm. He denies any dizziness, weakness or lightheadedness. He denies nausea, vomiting or diarrhea. He denies any unexplained diaphoresis. He has had no exertional component to these symptoms. He denies any overuse or history of the same. Patient had initially presented to the [facility] and was sent here for further evaluation. he has a rather impressive workout regimen and height 6 nearly 2 my lives with many [place] every morning which he did today and each of the last few days. He denies any exertional dyspnea or fatigue, he denies any exercise intolerance. He had no exacerbation of his symptoms during his hike nor did he have any other cardiac equivalent complaints. he has had no recent travel, history of blood clot or known cancer. He denies any lower extremity pain, swelling or redness. Related Data Home Medications Medication Instructions Recorded Confirmed cholecalciferol (vitamin D3) 25 2,000 iu PO Q DAY #0 04/17/12 09/13/20 mcg (1,000 unit) tablet (Vitamin D3) Previous Rx's Medication Instructions Recorded colchicine 0.6 mg tablet 0.6 mg PO BID PRN #20 tab 03/22/21 indomethacin 25 mg capsule 25 mg PO BID PRN #20 cap 03/22/21 methocarbamol 500 mg tablet 500 mg PO TID #20 tab 03/22/21 naproxen 500 mg tablet 500 mg PO BID PRN #180 tab 04/22/21 Allergies Allergy/AdvReac Type Severity Reaction Status Date / Time No Known Drug Allergies Allergy Verified 07/12/21 17:52 Review of Systems Review of Systems Narrative: GENERAL: Denies chills, fatigue, malaise, fever, sweats. HEENT: Denies sinus pain, ear pain, sore throat, difficulty swallowing, dizziness. RESPIRATORY: Denies dyspnea, cough, wheezing, hemoptysis, sputum. CARDIOVASCULAR: see HPI GASTROINTESTINAL: Denies nausea, vomiting, abdominal pain, diarrhea, constipation, melena. : Denies dysuria, frequency, incontinence, hematuria, urinary retention. MUSCULOSKELETAL: see HPI SKIN: Denies rash, skin lesions, or other NEUROLOGIC: Denies weakness, headache, numbness, change in speech, confusion, seizures, incoordination. PSYCHIATRIC: No concerning psychosocial issues. 12 point review of systems is negative except for those stated above Patient History Medical History Acute bronchitis (~10/2017) Carpal tunnel syndrome of left wrist Cough Dizziness Edema Erectile dysfunction Gout (1994) Hearing deficit Hearing loss High degree atrioventricular block History of bradycardia History of dizziness Hyperlipidemia Left shoulder pain Lesion of ulnar nerve, left upper limb Lumbar strain Neck pain Obese Otalgia, right ear Peyronie disease Peyronie disease Porphyria cutanea tarda (1986) Radicular pain in left arm Sigmoid diverticulosis Well adult exam Surgical History History of colonoscopy Hx of cholecystectomy (~1999) Status post cholecystectomy (1999) Family History Brother No problems noted. Brother Cancer Father No problems noted. Mother Stroke Sister Stroke Social History household members: spouse Smoking Status: Former smoker alcohol intake: current Smoking Status: Former smoker alcohol intake frequency: holidays/special occasions only Substance Use Type: does not use Exam Narrative Exam Narrative: GENERAL: [81] year old patient appears stated age. Well-developed patient, in No obvious distress. Resting comfortably HEAD: Atraumatic. Normocephalic. EYES: Pupils equal round and reactive. Extraocular motions intact. No scleral icterus. No injection or drainage. ENT: Nose without bleeding, purulent drainage. Throat without erythema, tonsillar hypertrophy or exudate. Airway patent. NECK: Trachea midline. Non tender CARDIOVASCULAR: Regular rate and rhythm without murmurs, gallops, or rubs. RESPIRATORY: Clear to auscultation. Breath sounds equal bilaterally. No wheezes, rales, or rhonchi. GASTROINTESTINAL: Abdomen soft, non-tender, nondistended. EXTREMITIES: No edema or joint tenderness. BACK: Nontender without deformity or crepitance. No flank tenderness. NEURO: AOx3. SKIN: No rash or erythema of visible areas Initial Vital Signs Initial Vital Signs: Vital Signs Pulse Rate 84 07/12/21 17:31 Respiratory Rate 20 07/12/21 17:31 Blood Pressure 192/85 H 07/12/21 17:31 Pulse Oximetry 96 07/12/21 17:31 Course Orders Ordered: ED Orders 07/12/21 19:48 Trop I [Troponin I] Stat Discontinued Medications Aspirin (Aspirin 81 Mg Chew Tab) 324 mg PO NOW ONE Stop: 07/12/21 17:35 Last Admin: 07/12/21 17:51 Dose: 324 mg Documented by: ZULLY Nitroglycerin (Nitroglycerin 0.4 Mg Sl Tab) 0.4 mg SL [id number] PRN PRN Reason: Chest Pain Vital Signs Vital signs: Vital Signs - 8 hr 07/12/21 19:00 07/12/21 19:30 07/12/21 20:00 Pulse Rate 82 83 85 Respiratory Rate 12 24 21 Blood Pressure 172/79 H 158/71 H 142/63 H Pulse Oximetry 97 98 96 07/12/21 20:30 07/12/21 21:00 Pulse Rate 90 87 Respiratory Rate 39 H 25 H Blood Pressure 144/92 H 152/70 H Pulse Oximetry 93 95 MDM - Chest Pain Lab Data Result diagrams: 07/12/21 17:46 07/12/21 17:46 Labs: Lab Results 07/12/21 07/12/21 07/12/21 Range/Units 17:41 17:46 17:46 WBC 7.4 (4.5-11.0) X10^3/uL RBC 4.76 (4.5-5.9) X10^6/uL Hgb 14.5 (13.5-17.5) g/dL Hct 42.7 (41-53) % MCV 89.7 (80-100) fL MCH 30.5 (26-34) PG MCHC 34.0 (30-36) % RDW 14.5 (11.6-14.8) % Plt Count 165 (150-400) X10^3/uL Neut % (Auto) 67.6 (50-75) % Lymph % (Auto) 21.5 L (25-40) % Navarro % (Auto) 8.7 (3-14) % Eos % (Auto) 1.8 L (2-4) % Baso % (Auto) 0.4 (0-2) % Neut # (Auto) 5000 (3154-2065) /uL Lymph # (Auto) 1600 (8435-2881) /uL Navarro # (Auto) 600 (0-900) /uL Eos # (Auto) 100 (0-450) /uL Baso # (Auto) 0 (0-100) /uL PT 10.9 (10.1-12.7) SECONDS INR 1.0 (0.9-1.3) APTT 33 (26.4-36.2) SECONDS Sodium (137-145) mmol/L Potassium (3.4-5.1) mmol/L Chloride (98-107) mmol/L Carbon Dioxide (22-32) mmol/L BUN (9-20) mg/dL Creatinine (0.66-1.25) mg/dL Estimated GFR (>60) mL/min BUN/Creatinine Ratio (6-22) Glucose (80-110) mg/dL Calcium (8.4-10.2) mg/dL Magnesium (1.6-2.3) mg/dL Total Bilirubin (0.2-1.3) mg/dL AST (17-59) IU/L ALT (<50) IU/L Alkaline Phosphatase (38-126) U/L Total Creatine Kinase (55-170) U/L CK-MB (CK-2) CK-MB (CK-2) Rel Index Troponin I (0.01-0.034) ng/mL Total Protein (6.3-8.2) g/dL Albumin (3.5-5.0) g/dL Globulin (1.7-4.1) g/dL Albumin/Globulin Ratio (1.0-2.8) Lipase (23-300) U/L SARS-CoV-2 (PCR) Negative (Negative) 07/12/21 07/12/21 Range/Units 17:46 19:48 WBC (4.5-11.0) X10^3/uL RBC (4.5-5.9) X10^6/uL Hgb (13.5-17.5) g/dL Hct (41-53) % MCV (80-100) fL MCH (26-34) PG MCHC (30-36) % RDW (11.6-14.8) % Plt Count (150-400) X10^3/uL Neut % (Auto) (50-75) % Lymph % (Auto) (25-40) % Navarro % (Auto) (3-14) % Eos % (Auto) (2-4) % Baso % (Auto) (0-2) % Neut # (Auto) (0388-7631) /uL Lymph # (Auto) (8097-7844) /uL Navarro # (Auto) (0-900) /uL Eos # (Auto) (0-450) /uL Baso # (Auto) (0-100) /uL PT (10.1-12.7) SECONDS INR (0.9-1.3) APTT (26.4-36.2) SECONDS Sodium 138 (137-145) mmol/L Potassium 3.9 (3.4-5.1) mmol/L Chloride 101 (98-107) mmol/L Carbon Dioxide 31 (22-32) mmol/L BUN 17 (9-20) mg/dL Creatinine 0.74 (0.66-1.25) mg/dL Estimated GFR > 60.0 (>60) mL/min BUN/Creatinine Ratio 23.0 H (6-22) Glucose 108 (80-110) mg/dL Calcium 9.4 (8.4-10.2) mg/dL Magnesium 2.2 (1.6-2.3) mg/dL Total Bilirubin 0.8 (0.2-1.3) mg/dL AST 27 (17-59) IU/L ALT 17 (<50) IU/L Alkaline Phosphatase 66 (38-126) U/L Total Creatine Kinase 83 (55-170) U/L CK-MB (CK-2) TNP CK-MB (CK-2) Rel Index TNP Troponin I < 0.012 < 0.012 (0.01-0.034) ng/mL Total Protein 7.8 (6.3-8.2) g/dL Albumin 4.5 (3.5-5.0) g/dL Globulin 3.3 (1.7-4.1) g/dL Albumin/Globulin Ratio 1.4 (1.0-2.8) Lipase 138 (23-300) U/L SARS-CoV-2 (PCR) (Negative) MDM Narrative Medical decision making narrative: patient with a reproducible sharp and stabbing left shoulder pain that eventually involved his left anterior chest presents for evaluation. He is asymptomatic for the duration of his visit, he does not have any red flag complaints such as exertional symptoms, nausea, vomiting, diaphoresis or recent exercise intolerance. Multiple EKGs are nonischemic. Multiple troponins are unremarkable. Patient is able to ambulate through the department without any difficulty whatsoever. He has been given extensive return precautions and questions have been answered to his apparent satisfaction Discharge Plan Departure Patient Disposition: Home Clinical Impression: Atypical chest pain Instructions: DI for Atypical Chest Pain Activity Restrictions/Additional Instructions: *You have been diagnosed with [atypical chest pain. Your history, physical exam, EKGs, lab work, chest x-ray and COVID swab are all very reassuring *What to do: *Please continue to take your regular medications as directed. [ ] New medication prescriptions sent to your pharmacy: [ ] [ ] New medication written as a paper prescription [x ] No new medications given *Please follow up with your primary care provider in 2-3 days, call for an appointment. Let them know you were seen in the Emergency Department and that we ask that you be seen in follow up. We will electronically transmit a record of today's note if your PCP is in our system *If you do not have a primary care provider please contact the [facility] Resource line at [phone]. They will ask some questions about your medical history and help get you set up with a doctor in the community. *Return to Emergency Department if you should have any new, worsening or concerning symptoms, such as [fever greater than 101 F, shaking chills, worsening pain, persistent vomiting or other bothersome symptoms] Prescriptions: No Action cholecalciferol (vitamin D3) [Vitamin D3] 1,000 UNIT tablet 2,000 iu PO Q DAY Qty: 0 0RF naproxen 500 mg tablet 500 mg PO BID PRN (Reason: Muscle or joint pain) Qty: 180 1RF Rx Instructions: DO NOT TAKE WITH INDOMETHACIN. colchicine 0.6 mg tablet 0.6 mg PO BID PRN (Reason: gout) Qty: 20 1RF indomethacin 25 mg capsule 25 mg PO BID PRN (Reason: Gout attack) Qty: 20 1RF Rx Instructions: administer with food or milk methocarbamol 500 mg tablet 500 mg PO TID Qty: 20 1RF Referrals: Hermes Mcqueen DO [Primary Care Provider] -
[2021-07-12 18:15] LABS: Troponin I < 0.012 ng/mL (0.01-0.034)
[2021-07-12 18:16] LABS: COVID19 -Nasal RAPID Negative (Negative)
[2021-07-12 18:49] LABS: HEMOLYSIS < 15 (0-50)
[2021-07-12 20:33] LABS: Troponin I < 0.012 ng/mL (0.01-0.034)
== END 2021-07-12 21:21 | disposition home or self-care (01) ==
PROVIDERS: Emergency Medicine; Emergency Provider Emergency Medicine; PCP Family Medicine
DX: R07.89 Other chest pain (principal); Z87.891 Personal history of nicotine dependence; Z95.0 Presence of cardiac pacemaker; Z20.822 Contact with and (suspected) exposure to COVID-19
CPT/HCPCS: 36415; 71045; 80053; 82550; 83690; 83735; 84484; 85025; 85610; 85730; 87635; 93005; 99284; C9803

== ENCOUNTER → 2022-04-10 08:33 | Outpatient (CLI) | payer MEDICARE, SELFPAY ==
[2022-04-10 11:30] LABS: BUN Creatinine Ratio 21.6 (6-22); Blood Urea Nitrogen 16 mg/dL (9-20); Calcium 8.6 mg/dL (8.4-10.2); Carbon Dioxide 27 mmol/L (22-32); Chloride 101 mmol/L (98-107); Estimated Glomerular Filt Rate > 60 mL/min (>60); Glucose 91 mg/dL (80-110); HEMOLYSIS 18 (0-50); Magnesium 2.2 mg/dL (1.6-2.3); Potassium 3.8 mmol/L (3.4-5.1); Sodium 138 mmol/L (137-145)
[2022-04-10 12:02] LABS: Thyroid Stimulating Hormone 3.12 uIU/mL (0.47-4.68)
== END ==
PROVIDERS: PCP Family Medicine; Referring Provider Internal Medicine Cardiovascular Disease; Visit Provider Internal Medicine Cardiovascular Disease
DX: I47.29 Other ventricular tachycardia (principal); I47.9 Paroxysmal tachycardia, unspecified
CPT/HCPCS: 36415; 80048; 83735; 84443

== ENCOUNTER → 2022-04-17 12:20 | Outpatient (CLI) | payer MEDICARE, SELFPAY ==
--- NOTE | 2022-04-17 | DI.ECHO.S_ITS ---
[place] +---------+ Hospital +---------+ : : [address] : : : : [id number] : : : : Phone: [phone] +---------+ Echocardiogram Report + + :Name: MAYELA PALOMINO Study Date: 04/17/2022 Height: 69 in : :[facility] ReadingLocation: Weight: 210 lb : : Gender: Male BSA: 2.1 m2 : :: 1940 Age: 81 yrs BP: 166/89 mmHg: :Reason For Study: Arrhythmia, SVT : :Ordering Physician: ISRRAEL, : :KEITH Performed By: Gentry Lynne : :Referring: KEITH ARCOS : + + Interpretation Summary The left ventricle is normal in size and wall thickness. Left ventricular systolic function is low normal. The ejection fraction is estimated to be 50- 55%. LVEF is slightly less dynamic in comparison to prior echo study. There are no focal wall motion abnormalities. Diastolic function could not be accurately assessed due to paced rhythm. The right ventricle grossly appears normal in size with probable normal systolic function. There is a pacemaker lead in the right ventricle. The right ventricular systolic pressure is estimated to be at least 34 mmHg based on an estimated right atrial pressure of 3 mm Hg. The left atrial size is normal. The right atrium is mildly dilated. There is no significant valvular heart disease. The aortic root is normal size. Procedure: A two-dimensional transthoracic echocardiogram with color flow and Doppler was performed. The study quality was technically adequate. Comparison is made with the echocardiogram of 10/01/2020. The patient has a paced rhythm. Left Ventricle: The left ventricle is normal in size and wall thickness. Left ventricular systolic function is low normal. The ejection fraction is estimated to be 50-55%. There are no focal wall motion abnormalities. Diastolic function could not be accurately assessed due to paced rhythm. Right Ventricle: The right ventricle grossly appears normal in size with probable normal systolic function. There is a pacemaker lead in the right ventricle. Atria: The left atrial size is normal. The right atrium is mildly dilated. The interatrial septum grossly appears intact with no obvious evidence for an atrial septal defect. Mitral Valve: The mitral valve is normal in structure and function. There is trace mitral regurgitation. Aortic Valve: There is mild aortic valve sclerosis. No aortic regurgitation is present. Tricuspid Valve: The tricuspid valve is normal in structure and function. There is mild tricuspid regurgitation. The right ventricular systolic pressure is estimated to be at least 34 mmHg based on an estimated right atrial pressure of 3 mm Hg. Pulmonic Valve: The pulmonic valve is not well seen, but is grossly normal. There is no pulmonic valvular regurgitation. There is no significant valvular heart disease. Great Vessels: The aortic root is normal size. The dimensions of the ascending aorta are normal. The IVC is of normal diameter and collapses greater than 50% with a sniff. This suggests a low right atrial pressure of 3 mm Hg. Pericardium/ Pleura There is no pericardial effusion. There is no pleural effusion. MMode/2D Measurements & Calculations LVIDd: 4.7 cm LVOT diam: 1.9 cm LVIDs: 3.3 cm Ao root diam: 2.9 cm FS: 29.8 % asc Aorta Diam: 3.3 cm IVSd: 0.80 cm LVPWd: 0.90 cm LV allen. diameter/BSA (cm/m^2): 2.2 LV sys. diameter/BSA (cm/m^2): 1.6 LA dimension: 3.3 cm RA long axis: 5.1 cm LA A2 area: 13.2 cm2 RA area: 21.7 cm2 LA A4 area: 21.7 cm2 RA vol: 79.3 ml LA length (vol): 4.3 cm RA : 37.6 ml/m2 LA vol: 56.2 ml LA vol index: 26.6 ml/m2 TAPSE_phl: 2.3 cm Doppler Measurements & Calculations Ao V2 max: 145.0 cm/sec LVOT Max Yoan: 78.3 cm/sec Ao V2 mean: 106.0 cm/sec LV V1 max P.5 mmHg Ao max P.0 mmHg LV V1 VTI: 17.7 cm Ao mean P.0 mmHg MAGALI(I,D): 1.6 cm2 Ao V2 VTI: 30.8 cm MAGALI(V,D): 1.5 cm2 sev ratio: 0.57 MAGALI indexed to BSA (cm^2/m^2): 0.77 MV E max yoan: 55.7 cm/sec TR max yoan: 280.0 cm/sec MV A max yoan: 101.0 cm/sec TR max P.4 mmHg MV E/A: 0.55 Med Peak E' Yoan: 5.1 cm/sec E/E' med: 10.9 Lat Peak E' Yoan: 6.4 cm/sec E/E' lat: 8.7 E/e' average: 9.8 MV dec time: 0.36 sec SV(LVOT): 50.2 ml AV VR_phl: 0.54 MAGALI(VTI)/BSA_phl: 0.77 MV P1/2t-pr_phl: 107.0 msec Reading Physician:08:30 AM
== END ==
PROVIDERS: PCP Family Medicine; Referring Provider Internal Medicine Cardiovascular Disease; Visit Provider Internal Medicine Cardiovascular Disease
DX: I08.2 Rheumatic disorders of both aortic and tricuspid valves (principal); I47.29 Other ventricular tachycardia
CPT/HCPCS: 93306

== ENCOUNTER → 2022-05-12 10:47 | Outpatient (CLI) | payer MEDICARE, SELFPAY ==
[2022-05-12 11:56] LABS: Add Manual Diff / Slide Review NO; Basophils Absolute Auto 0 /uL (0-100); Basophils Percent Auto 0.7 % (0-2); Eosinophils Absolute Auto 100 /uL (0-450); Eosinophils Percent Auto 1.7 % (2-4); Hematocrit 39.3 % (41-53); Hemoglobin 12.9 g/dL (13.5-17.5); Lymphocytes Absolute Auto 1400 /uL (1100-4500); Lymphocytes Percent Auto 23.7 % (25-40); Mean Corpuscular HGB Conc 32.9 % (30-36); Mean Corpuscular Hemoglobin 30.4 PG (26-34); Mean Corpuscular Volume 92.5 fL (80-100); Monocytes Absolute Auto 400 /uL (0-900); Monocytes Percent Auto 6.3 % (3-14); Neutrophils Absolute Auto 4000 /uL (1500-7000); Neutrophils Percent Auto 67.6 % (50-75); Platelet Count 164 X10^3/uL (150-400); Red Blood Cell Count 4.25 X10^6/uL (4.5-5.9); Red Cell Distribution Width 15.1 % (11.6-14.8)
[2022-05-12 12:10] LABS: Alanine Aminotransferase 18 IU/L (<50); Albumin Globulin Ratio 1.3 (1.0-2.8); Alkaline Phosphatase 71 U/L (38-126); Aspartate Aminotransferase 29 IU/L (17-59); BUN Creatinine Ratio 25.4 (6-22); Bilirubin Total 1.1 mg/dL (0.2-1.3); Blood Urea Nitrogen 16 mg/dL (9-20); Calcium 8.5 mg/dL (8.4-10.2); Carbon Dioxide 30 mmol/L (22-32); Chloride 98 mmol/L (98-107); Cholesterol 112 mg/dL (140-199); Estimated Glomerular Filt Rate > 60 mL/min (>60); Globulin 3.1 g/dL (1.7-4.1); Glucose 89 mg/dL (80-110); HDL Cholesterol 40 mg/dL (40-60); HEMOLYSIS < 15 (0-50); LDL Cholesterol Calculated 61 mg/dL (<100); Potassium 4.1 mmol/L (3.4-5.1); Sodium 136 mmol/L (137-145); Total Protein 7.1 g/dL (6.3-8.2); Triglycerides 57 mg/dL (35-150); Uric Acid 4.2 mg/dL (3.5-8.5)
[2022-05-12 12:39] LABS: Prostate Specific Antigen Scrn 2.36 ng/mL (0.1-4.0)
== END ==
PROVIDERS: PCP Family Medicine; Referring Provider Family Medicine; Visit Provider Family Medicine
DX: Z00.00 Encounter for general adult medical examination without abnormal findings (principal); I10 Essential (primary) hypertension; Z12.5 Encounter for screening for malignant neoplasm of prostate; M10.9 Gout, unspecified; Z95.0 Presence of cardiac pacemaker
CPT/HCPCS: 36415; 80053; 80061; 84550; 85025; G0103

== ENCOUNTER → 2023-05-08 10:25 | Outpatient (CLI) | payer MEDICARE, SELFPAY ==
[2023-05-08 11:30] LABS: Add Manual Diff / Slide Review NO; Basophils Absolute Auto 0 /uL (0-100); Basophils Percent Auto 0.6 % (0-2); Eosinophils Absolute Auto 100 /uL (0-450); Eosinophils Percent Auto 1.4 % (2-4); Hemoglobin 13.6 g/dL (13.5-17.5); Lymphocytes Absolute Auto 1500 /uL (1100-4500); Lymphocytes Percent Auto 23.6 % (25-40); Mean Corpuscular HGB Conc 33.1 % (30-36); Mean Corpuscular Hemoglobin 30.9 PG (26-34); Mean Corpuscular Volume 93.3 fL (80-100); Monocytes Absolute Auto 400 /uL (0-900); Monocytes Percent Auto 5.7 % (3-14); Neutrophils Absolute Auto 4500 /uL (1500-7000); Neutrophils Percent Auto 68.7 % (50-75); Platelet Count 178 X10^3/uL (150-400); Red Cell Distribution Width 15.1 % (11.6-14.8); White Blood Cell Count 6.5 X10^3/uL (4.5-11.0)
[2023-05-08 11:41] LABS: Alanine Aminotransferase 18 IU/L (<50); Albumin 4.3 g/dL (3.5-5.0); Albumin Globulin Ratio 1.3 (1.0-2.8); Alkaline Phosphatase 71 U/L (38-126); Aspartate Aminotransferase 31 IU/L (17-59); BUN Creatinine Ratio 30.3 (6-22); Bilirubin Total 1.3 mg/dL (0.2-1.3); Blood Urea Nitrogen 20 mg/dL (9-20); Calcium 9.4 mg/dL (8.4-10.2); Carbon Dioxide 26 mmol/L (22-32); Chloride 101 mmol/L (98-107); Estimated Glomerular Filt Rate > 60 mL/min (>60); Globulin 3.2 g/dL (1.7-4.1); Glucose 113 mg/dL (80-110); HEMOLYSIS < 15 (0-50); Potassium 4.5 mmol/L (3.4-5.1); Sodium 134 mmol/L (137-145); Total Protein 7.5 g/dL (6.3-8.2); Uric Acid 5.4 mg/dL (3.5-8.5)
== END ==
PROVIDERS: PCP Family Medicine; Referring Provider Family Medicine; Visit Provider Family Medicine
DX: M10.9 Gout, unspecified (principal); D64.9 Anemia, unspecified; I10 Essential (primary) hypertension
CPT/HCPCS: 36415; 80053; 84550; 85025

== ENCOUNTER → 2023-05-10 11:35 | Outpatient (CLI) | payer MEDICARE, SELFPAY ==
[2023-05-11 12:54] LABS: Fecal Immunochemical Test Negative (Negative)
== END ==
PROVIDERS: PCP Family Medicine; Referring Provider Family Medicine; Visit Provider Family Medicine
DX: Z12.11 Encounter for screening for malignant neoplasm of colon (principal)
CPT/HCPCS: 82274

== ENCOUNTER → 2023-05-15 09:19 | Outpatient (CLI) | payer MEDICARE, SELFPAY ==
[2023-05-15 10:27] LABS: Hemoglobin A1C% w Est Avg Glu 5.6 % (4.0-6.0)
[2023-05-15 10:38] LABS: HEMOLYSIS < 15 (0-50); Iron 106 ug/dL (49-181)
[2023-05-15 10:50] LABS: Percent Iron Saturation 31 % (20-50); Total Iron Binding Capacity 343 ug/dL (261-462); Transferrin 272 mg/dL (206-381)
[2023-05-15 11:16] LABS: Ferritin 48 ng/mL (18-464)
== END ==
PROVIDERS: PCP Family Medicine; Referring Provider Family Medicine; Visit Provider Family Medicine
DX: E80.1 Porphyria cutanea tarda (principal); R73.03 Prediabetes
CPT/HCPCS: 36415; 82728; 83036; 83540; 83550

== ENCOUNTER → 2023-12-27 10:22 | Outpatient (CLI) | payer MEDICARE, SELFPAY ==
[2023-12-27 13:24] LABS: Prostate Specific Antigen 3.33 ng/mL (0.10-4.00)
== END ==
PROVIDERS: PCP Family Medicine; Referring Provider Family Medicine; Visit Provider Family Medicine
DX: Z12.5 Encounter for screening for malignant neoplasm of prostate (principal)
CPT/HCPCS: 36415; 84153

== ENCOUNTER → 2024-01-03 11:08 | Outpatient (CLI) | payer MEDICARE, SELFPAY ==
[2024-01-03 12:19] LABS: Hematocrit 40.1 % (41-53); Hemoglobin 13.4 g/dL (13.5-17.5)
== END ==
PROVIDERS: PCP Family Medicine; Referring Provider Family Medicine; Visit Provider Family Medicine
DX: E80.1 Porphyria cutanea tarda (principal); Z79.899 Other long term (current) drug therapy
CPT/HCPCS: 36415; 85014; 85018

== ENCOUNTER → 2024-08-31 12:49 | Outpatient (CLI) | payer MEDICARE, SELFPAY ==
--- NOTE | 2024-08-31 12:52 | DI.CT.S_ITS ---
PROCEDURE: CT CHEST HIGH RESOLUTION INDICATIONS: INTERSTITIAL LUNG DISEASE, EVALUATE FOR CHANGE TECHNIQUE: Noncontrast 1.0 and 5.0 mm thick contiguous axial sections from the pulmonary apex to the posterior costophrenic angles, with 7 mm thick coronal and sagittal MIP reformats. 1 mm thick dynamic expiratory images acquired through the upper, mid, and lower lungs. 1.0 mm thick axial sections acquired from the mag to the posterior costophrenic angles in the prone end-inspiration position. For radiation dose reduction, the following was used: automated exposure control, adjustment of mA and/or kV according to patient size. COMPARISON: [facility], CT, CT HIGH RESOLUTION CHEST, 03/07/2024, 8:06. FINDINGS: Image quality: Diagnostic Lungs and pleura: [id number] peripheral reticulation again seen, with definite honeycombing at the right costophrenic angle. There is associated traction bronchiectasis. Findings are similar compared to February 2024. There is a mild degree of air trapping on expiratory images, but this is a relatively minor finding and may be within physiologic limits. Many small pulmonary nodules are stable compared to prior imaging. For example in the right posterior lung and left mid lung No dense airspace disease. These findings persist on prone imaging. Mediastinum, heart, and esophagus: Cardiomegaly. The main pulmonary artery measures 2.7 cm, which is within normal limits. Mildly patulous esophagus. No pathologic lymphadenopathy by size criteria. Chest wall and thyroid: Unremarkable Upper abdomen: Cholecystectomy clips. Pancreatic parenchymal calcifications likely from prior inflammation. Bones: There are degenerative changes. No acute or suspicious osseous finding. Similar left rib deformity. IMPRESSION: Definite UIP pattern [id number] ILD is similar compared 03/07/2024. Findings are most obvious at the right costophrenic angle. No airspace consolidation or pleural effusion. Small pulmonary nodules are stable. Continued surveillance is suggested for the above findings. Cardiomegaly. Pancreatic parenchymal calcifications likely from prior inflammation. Dictated by: Rodlan Tinoco M.D. on 08/31/2024 at 17:47 Approved by: Roldan Tinoco M.D. on 08/31/2024 at 17:54
== END ==
PROVIDERS: PCP Family Medicine; Referring Provider Family Medicine; Visit Provider Internal Medicine Critical Care Medicine
DX: J84.10 Pulmonary fibrosis, unspecified (principal); R91.8 Other nonspecific abnormal finding of lung field; I51.7 Cardiomegaly; K86.89 Other specified diseases of pancreas
CPT/HCPCS: 71250

== ENCOUNTER → 2024-09-29 14:00 | Outpatient (CLI) | payer MEDICARE, SELFPAY ==
[2024-09-29 15:07] LABS: Add Manual Diff / Slide Review NO; Basophils Absolute Auto 0 /uL (0-100); Basophils Percent Auto 0.8 % (0-2); Eosinophils Absolute Auto 100 /uL (0-450); Hematocrit 40.6 % (41-53); Hemoglobin 13.4 g/dL (13.5-17.5); Lymphocytes Absolute Auto 1200 /uL (1100-4500); Lymphocytes Percent Auto 23.5 % (25-40); Mean Corpuscular Hemoglobin 30.9 PG (26-34); Mean Corpuscular Volume 93.7 fL (80-100); Monocytes Absolute Auto 300 /uL (0-900); Monocytes Percent Auto 6.8 % (3-14); Neutrophils Absolute Auto 3400 /uL (1500-7000); Neutrophils Percent Auto 66.9 % (50-75); Platelet Count 196 X10^3/uL (150-400); Red Blood Cell Count 4.33 X10^6/uL (4.5-5.9); Red Cell Distribution Width 15.2 % (11.6-14.8); White Blood Cell Count 5.1 X10^3/uL (4.5-11.0)
[2024-09-29 15:25] LABS: HEMOLYSIS < 15 (0-50); Iron 90 ug/dL (49-181)
[2024-09-29 15:28] LABS: Alanine Aminotransferase 21 IU/L (<50); Albumin 4.4 g/dL (3.5-5.0); Albumin Globulin Ratio 1.6 (1.0-2.8); Alkaline Phosphatase 77 U/L (38-126); Aspartate Aminotransferase 33 IU/L (17-59); BUN Creatinine Ratio 24.1 (6-22); Blood Urea Nitrogen 20 mg/dL (9-20); Calcium 9.1 mg/dL (8.4-10.2); Carbon Dioxide 26 mmol/L (22-32); Chloride 103 mmol/L (98-107); Cholesterol 135 mg/dL (140-199); Estimated Glomerular Filt Rate > 60 mL/min (>60); Globulin 2.8 g/dL (1.7-4.1); Glucose 109 mg/dL (80-110); HDL Cholesterol 44 mg/dL (40-60); HEMOLYSIS < 15 (0-50); LDL Cholesterol Calculated 79 mg/dL (<100); Potassium 4.7 mmol/L (3.4-5.1); Sodium 139 mmol/L (137-145); Total Protein 7.2 g/dL (6.3-8.2); Triglycerides 62 mg/dL (35-150)
[2024-09-29 15:37] LABS: Percent Iron Saturation 28 % (20-50); Total Iron Binding Capacity 323 ug/dL (261-462); Transferrin 262 mg/dL (206-381)
[2024-09-29 15:58] LABS: Prostate Specific Antigen Scrn 4.65 ng/mL (0.1-4.0)
== END ==
PROVIDERS: PCP Family Medicine; Referring Provider Family Medicine; Visit Provider Family Medicine
DX: Z00.00 Encounter for general adult medical examination without abnormal findings (principal); D64.9 Anemia, unspecified; I10 Essential (primary) hypertension; Z12.5 Encounter for screening for malignant neoplasm of prostate; E78.2 Mixed hyperlipidemia
CPT/HCPCS: 36415; 80053; 80061; 83540; 83550; 85025; G0103

== ENCOUNTER → 2025-05-25 09:36 | Outpatient (CLI) | payer MEDICARE, SELFPAY ==
[2025-05-25 13:08] LABS: Add Manual Diff / Slide Review NO; Hematocrit 40.7 % (41-53); Hemoglobin 13.5 g/dL (13.5-17.5); Lymphocytes Absolute Auto 1500 /uL (1100-4500); Mean Corpuscular HGB Conc 33.2 % (30-36); Mean Corpuscular Hemoglobin 31.1 PG (26-34); Mean Corpuscular Volume 93.8 fL (80-100); Platelet Count 197 X10^3/uL (150-400)
[2025-05-25 13:56] LABS: Blood Urea Nitrogen 15 mg/dL (9-20); Calcium 9.3 mg/dL (8.4-10.2); Carbon Dioxide 28 mmol/L (22-32); Chloride 102 mmol/L (98-107); Estimated Glomerular Filt Rate > 60 mL/min (>60); Glucose 125 mg/dL (70-99); HEMOLYSIS < 15 (0-50); Potassium 4.7 mmol/L (3.4-5.1); Sodium 139 mmol/L (137-145)
== END ==
PROVIDERS: PCP Family Medicine; Referring Provider Family Medicine; Visit Provider Internal Medicine Cardiovascular Disease
DX: Z45.010 Encounter for checking and testing of cardiac pacemaker pulse generator [battery] (principal)
CPT/HCPCS: 36415; 80048; 85025